=== PATIENT | male | born 1955 | race Caucasian/White ===

== ENCOUNTER → 2019-10-05 14:40 | Outpatient (BNVA) | payer MEDICAID, SELFPAY | PROVIDERS: Family Provider Nurse Practitioner Family; PCP Nurse Practitioner Family; Visit Provider Nurse Practitioner Family | DX: R09.89 Other specified symptoms and signs involving the circulatory and respiratory systems (principal); R60.9 Edema, unspecified | CPT/HCPCS: 71046; 80053; 85025; 87804 ==

== ENCOUNTER → 2019-11-18 09:37 | Outpatient (BNVA) | payer MEDICAID, SELFPAY | PROVIDERS: Visit Provider Nurse Practitioner Family | DX: R73.9 Hyperglycemia, unspecified (principal); R94.4 Abnormal results of kidney function studies; J40 Bronchitis, not specified as acute or chronic | CPT/HCPCS: 80053; 83036 ==

== ENCOUNTER → 2020-02-09 12:22 | Outpatient (BNVA) | payer MEDICAID, SELFPAY | PROVIDERS: PCP Nurse Practitioner Family; Visit Provider Nurse Practitioner Family | DX: E78.5 Hyperlipidemia, unspecified (principal); I10 Essential (primary) hypertension; R73.09 Other abnormal glucose | CPT/HCPCS: 80053; 80061; 83036; 85025 ==

== ENCOUNTER → 2020-05-14 11:37 | Outpatient (BNVA) | payer MEDICAID, SELFPAY | PROVIDERS: PCP Nurse Practitioner Family; Visit Provider Nurse Practitioner Family | DX: E78.5 Hyperlipidemia, unspecified (principal); R73.03 Prediabetes | CPT/HCPCS: 80053; 80061; 83036; 85025 ==

== ENCOUNTER → 2020-11-14 11:41 | Outpatient (BNVA) | payer MEDICAID, SELFPAY | PROVIDERS: PCP Nurse Practitioner Family; Visit Provider Nurse Practitioner Family | DX: Z13.6 Encounter for screening for cardiovascular disorders (principal); I10 Essential (primary) hypertension | CPT/HCPCS: 80053; 80061; 83036; 85025 ==

== ENCOUNTER → 2021-03-20 09:43 | Outpatient (BNVA) | payer MEDICAID, SELFPAY | PROVIDERS: PCP Nurse Practitioner Family; Visit Provider Nurse Practitioner Family | DX: R06.02 Shortness of breath (principal); I51.7 Cardiomegaly; I70.0 Atherosclerosis of aorta; I10 Essential (primary) hypertension | CPT/HCPCS: 71046; 80053; 85025; 85379 ==

== ENCOUNTER → 2021-04-12 08:40 | Outpatient (BNVA) | payer MEDICAID, SELFPAY | PROVIDERS: PCP Nurse Practitioner Family; Visit Provider Nurse Practitioner Family | DX: R53.83 Other fatigue (principal); R73.03 Prediabetes; I10 Essential (primary) hypertension | CPT/HCPCS: 80053; 80061; 81000; 81003; 82306; 82607; 83036; 83735; 84403; 84443; 85025; 87077; 87086; 87184 ==

== ENCOUNTER → 2021-04-19 11:00 | Outpatient (BNVA) | payer MEDICAID, SELFPAY | PROVIDERS: PCP Nurse Practitioner Family; Visit Provider Nurse Practitioner Family | DX: R73.03 Prediabetes (principal); R53.83 Other fatigue; I10 Essential (primary) hypertension; E55.9 Vitamin D deficiency, unspecified; Z95.1 Presence of aortocoronary bypass graft; Z71.6 Tobacco abuse counseling; M54.30 Sciatica, unspecified side; E78.5 Hyperlipidemia, unspecified; N39.0 Urinary tract infection, site not specified; N52.9 Male erectile dysfunction, unspecified; N18.9 Chronic kidney disease, unspecified | CPT/HCPCS: 80048; 84439; 84443; 84481 ==

== ENCOUNTER → 2021-05-06 12:32 | Outpatient (BNVA) | payer MEDICAID, SELFPAY | PROVIDERS: PCP Nurse Practitioner Family; Visit Provider Nurse Practitioner Family | DX: Z95.1 Presence of aortocoronary bypass graft (principal) | CPT/HCPCS: 80048 ==

== ENCOUNTER → 2021-07-17 13:04 | Outpatient (BNVA) | payer MEDICAID, SELFPAY | PROVIDERS: PCP Nurse Practitioner Family; Visit Provider Nurse Practitioner Family | DX: R73.03 Prediabetes (principal); E55.9 Vitamin D deficiency, unspecified | CPT/HCPCS: 80053; 80061; 82306; 83036; 84443; 85025 ==

== ENCOUNTER → 2021-08-30 08:23 | Outpatient (BNVA) | payer MEDICAID, SELFPAY | PROVIDERS: PCP Nurse Practitioner Family; Visit Provider Internal Medicine Pulmonary Disease | DX: Z20.822 Contact with and (suspected) exposure to COVID-19 (principal); Z01.812 Encounter for preprocedural laboratory examination; J44.9 Chronic obstructive pulmonary disease, unspecified | CPT/HCPCS: 87635 ==

== ENCOUNTER 2021-09-05 12:16 | Outpatient (CLI) | payer MEDICAID, SELFPAY ==
--- NOTE | 2021-09-05 12:56 | PFTS_ITS ---
Date of Study:09/05/21 Date of Dictation: 09/06/21 MECHANICS: Postbronchodilator forced vital capacity (FVC) is reduced . Postbronchodilator forced expiratory volume in one second (FEV1) is moderately reduced 66%. FEV1/FVC is normal There is no significant response to bronchodilators. FLOW VOLUME LOOP: Normal. LUNG VOLUMES: Total lung capacity (TLC) is mildly reduced. Residual volume (RV) is normal.. DIFFUSING CAPACITY FOR CARBON MONOXIDE: Normal . INTERPRETATION: The spirometry shows restrictive pattern. Lung volumes suggestive of mild restriction. There is normal. Constellation of findings consistent with restrictive lung disease with normal gas transfer. Clinical correlation recommended. MTDD
--- NOTE | 2021-09-05 13:02 | PFTS_ITS ---
Date of Study:09/05/21 Date of Dictation: 09/06/21 MECHANICS: Postbronchodilator forced vital capacity (FVC) is reduced . Postbronchodilator forced expiratory volume in one second (FEV1) is moderately reduced 66%. FEV1/FVC is normal There is no significant response to bronchodilators. FLOW VOLUME LOOP: Normal. LUNG VOLUMES: Total lung capacity (TLC) is mildly reduced. Residual volume (RV) is normal.. DIFFUSING CAPACITY FOR CARBON MONOXIDE: Normal . INTERPRETATION: The spirometry shows restrictive pattern. Lung volumes suggestive of mild restriction. There is normal. Constellation of findings consistent with obstructive ventilatory disease with restrictive lung disease with normal gas transfer. Clinical correlation recommended. MTDD
== END 2021-09-05 12:17 | disposition home or self-care (01) ==
LOC: RT 12:17
PROVIDERS: PCP Nurse Practitioner Family; Visit Provider Internal Medicine Pulmonary Disease
DX: J44.9 Chronic obstructive pulmonary disease, unspecified (principal)
CPT/HCPCS: 94060; 94726; 94729; J7611

== ENCOUNTER → 2021-10-22 11:39 | Outpatient (BNVA) | payer MEDICAID, SELFPAY | PROVIDERS: PCP Nurse Practitioner Family; Visit Provider Nurse Practitioner Family | DX: E55.9 Vitamin D deficiency, unspecified (principal) | CPT/HCPCS: 82306 ==

== ENCOUNTER → 2021-10-28 15:41 | Outpatient (BNVA) | payer MEDICAID, SELFPAY | PROVIDERS: PCP Nurse Practitioner Family; Visit Provider Nurse Practitioner Family | DX: M19.031 Primary osteoarthritis, right wrist (principal); M25.531 Pain in right wrist; G62.9 Polyneuropathy, unspecified; R73.03 Prediabetes; E55.9 Vitamin D deficiency, unspecified | CPT/HCPCS: 73110; 80053; 82607; 83036; 84443; 85025 ==

== ENCOUNTER → 2021-12-17 12:42 | Outpatient (BNVA) | payer MEDICAID, SELFPAY | PROVIDERS: PCP Nurse Practitioner Family; Visit Provider Internal Medicine Pulmonary Disease | DX: I25.10 Atherosclerotic heart disease of native coronary artery without angina pectoris; J44.9 Chronic obstructive pulmonary disease, unspecified; Z71.6 Tobacco abuse counseling; Z95.1 Presence of aortocoronary bypass graft; F17.210 Nicotine dependence, cigarettes, uncomplicated | CPT/HCPCS: 99214 ==

== ENCOUNTER → 2021-12-19 13:25 | Outpatient (BNVA) | payer MEDICAID, SELFPAY | PROVIDERS: PCP Nurse Practitioner Family; Visit Provider Internal Medicine Cardiovascular Disease | DX: I25.10 Atherosclerotic heart disease of native coronary artery without angina pectoris (principal); J44.9 Chronic obstructive pulmonary disease, unspecified; F17.210 Nicotine dependence, cigarettes, uncomplicated | CPT/HCPCS: 99214 ==

== ENCOUNTER 2022-02-18 08:40 | Outpatient (CLI) | payer MEDICAID, SELFPAY ==
--- NOTE | 2022-02-18 08:48 | CT_ITS ---
WS: [id number] LDCT LUNG CANCER SCREENING TECHNIQUE: Noncontrast CT of the chest with coronal and sagittal reformatted images. CLINICAL INFORMATION: Lung Screening COMPARISON: CT 2014 DLP: 53.0 mGy.cm DIvol: Mean CTDIvol: 1.58 (mGy) All CT scans at [facility] use at least one of these dose optimization techniques: automat ed exposure control; mA and/or kV adjustment per patient size (includes targeted exams where dose is matched to clinical indication); or iterative reconstruction. FINDINGS: Subsegmental atelectasis RIGHT lower lobe with focal nodule measuring 6 mm. This is progressed compar ed to 2015. Associated linear fibrosis in the RIGHT lower lobe. Noncalcified subpleural nodule RIGHT upper lobe measuring 3 mm. 4 mm groundglass opacity LEFT upper l obe is unchanged since 2015 Hypertrophic changes thoracic spine. Cardiomegaly. Aortic calcification. Coronary calcification. Norm al caliber thoracic aorta. Sternotomy. No mediastinal or hilar lymphadenopathy. Adrenal glands are no rmal. CT/CT lung screening [id number] IMPRESSION: LUNG-RADS: 3-Probably Benign FOLLOW UP: 6 Month LDCT
== END 2022-02-18 08:41 | disposition home or self-care (01) ==
LOC: RAD 08:42
PROVIDERS: PCP Nurse Practitioner Family; Visit Provider Internal Medicine Pulmonary Disease
DX: Z12.2 Encounter for screening for malignant neoplasm of respiratory organs (principal); F17.210 Nicotine dependence, cigarettes, uncomplicated
CPT/HCPCS: 71271

== ENCOUNTER → 2022-04-23 14:36 | Outpatient (BNVA) | payer MEDICAID, SELFPAY | PROVIDERS: PCP Nurse Practitioner Family; Visit Provider Internal Medicine Cardiovascular Disease | DX: I11.0 Hypertensive heart disease with heart failure (principal); I50.22 Chronic systolic (congestive) heart failure; I25.10 Atherosclerotic heart disease of native coronary artery without angina pectoris; Z95.1 Presence of aortocoronary bypass graft; F17.210 Nicotine dependence, cigarettes, uncomplicated | CPT/HCPCS: 99214 ==

== ENCOUNTER → 2022-05-05 09:54 | Outpatient (BNVA) | payer MEDICAID, SELFPAY | PROVIDERS: PCP Nurse Practitioner Family; Visit Provider Nurse Practitioner Family | DX: E55.9 Vitamin D deficiency, unspecified (principal); E78.5 Hyperlipidemia, unspecified; I10 Essential (primary) hypertension; N18.9 Chronic kidney disease, unspecified; R73.09 Other abnormal glucose | CPT/HCPCS: 80053; 80061; 82306; 83036; 84443; 85025; G0103 ==

== ENCOUNTER → 2022-05-08 16:54 | Outpatient (BNVA) | payer MEDICAID, SELFPAY | PROVIDERS: PCP Nurse Practitioner Family; Visit Provider Family Medicine | DX: J02.9 Acute pharyngitis, unspecified (principal); E55.9 Vitamin D deficiency, unspecified; G62.9 Polyneuropathy, unspecified; E78.5 Hyperlipidemia, unspecified; I10 Essential (primary) hypertension; G47.00 Insomnia, unspecified | CPT/HCPCS: 87071; 87880 ==

== ENCOUNTER → 2022-06-09 09:32 | Outpatient (BNVA) | payer MEDICAID, SELFPAY | PROVIDERS: PCP Nurse Practitioner Family; Visit Provider Internal Medicine Pulmonary Disease | DX: R06.02 Shortness of breath (principal); Z95.1 Presence of aortocoronary bypass graft; J44.9 Chronic obstructive pulmonary disease, unspecified; Z71.6 Tobacco abuse counseling; I25.119 Atherosclerotic heart disease of native coronary artery with unspecified angina pectoris; F17.210 Nicotine dependence, cigarettes, uncomplicated; Z87.09 Personal history of other diseases of the respiratory system; R91.8 Other nonspecific abnormal finding of lung field | CPT/HCPCS: 99214 ==

== ENCOUNTER 2022-06-10 16:29 | Emergency (ER) | payer MEDICAID, SELFPAY ==
[2022-06-10 16:56] VITALS: BP 201/76; PULSE 63; RESP 16; TEMP 36.6; O2SAT 95; BMI 33.5
[2022-06-10 20:06] VITALS: BP 186/94; PULSE 54; RESP 16; O2SAT 95
--- NOTE | 2022-06-10 20:45 | XRR_ITS ---
PROCEDURE INFORMATION: Exam: XR Lumbosacral Spine Exam date and time: 06/10/2022 8:59 PM Age: 66 years old Clinical indication: Injury or trauma; Fall; Other: Pain; Additional info: Fall with low back pain TECHNIQUE: Imaging protocol: Radiologic exam of the lumbosacral spine. Views: 2 or 3 views. COMPARISON: MR lumbar spine wo con* [id number] 06/22/2019 12:27 PM FINDINGS: Bones/joints: Multilevel productive degenerative endplate changes throughout the spine. Grade 1 anterolisthesis of L4 relative to L5 of 5.5 mm. Moderate osteoarthritis of the hips bilaterally. Soft tissues: Unremarkable. Vasculature: Scattered vascular calcifications. XR/XR lumbar spine 2-3V* [id number] IMPRESSION: 1. Negative for fracture or dislocation 2. Multilevel productive degenerative endplate changes throughout the spine. 3. Grade 1 anterolisthesis of L4 relative to L5 of 5.5 mm. 4. Scattered vascular calcifications. 5. Moderate osteoarthritis of the hips bilaterally.
--- NOTE | 2022-06-10 20:46 | W.ED.BACK ---
HPI - Back Pain/Injury General: Chief Complaint: Back Pain/Injury Stated Complaint: fall/ low back pain Time Seen by Provider: 06/10/22 20:09 History of Present Illness: Patient is a 66-year-old male comes to the ED with low back pain. Patient says symptoms started yesterday when he had a fall. He states that he was helping his friend work on his house and he fell through a soft spot in the floor approximately a foot to a foot and half in height. He landed on his right side. Since fall he is having pain in his lower back that radiates down into his hips bilaterally. Rates the pain currently a 10 out of 10. Pain worsens when he walks. Denies any head trauma or loss of consciousness. Denies being on any blood thinner. Denies any bladder or bowel incontinence, pelvic anesthesia or any weakness to lower extremities. Associated symptoms: Deny abdominal pain, chills, dysuria, fatigue, fever(s), hematuria, nausea or vomiting Review of Systems Const: Denies: fever(s), chills or fatigue Eyes: Denies: change in vision or eye discomfort ENMT: Denies: throat pain, odynophagia, nasal discharge or nasal congestion Card: Denies: chest pain, palpitations, edema, swelling of feet/ankles, dyspnea on exertion or orthopnea Resp: Denies: dyspnea, productive cough or non-productive cough GI: Denies: abdominal pain, nausea, vomiting, diarrhea, constipation or hematochezia : Denies: flank pain, difficulty urinating, dysuria or hematuria Musc: Reports: back pain; Denies: neck pain or extremity swelling Skin/Breast: Denies: rash or new lesions Neuro: Denies: headache(s), numbness in extremities or weakness in extremities PFS ED PFSH: Medical History CHF (congestive heart failure), NYHA class II Essential (primary) hypertension Hyperlipidemia, unspecified Lung nodule Spondylosis without myelopathy or radiculopathy, lumbosacral region Surgical History History of PTCA Hx of CABG Hx of vasectomy Family History Father Stroke Cancer Mother CAD (coronary artery disease) Diabetes Brother CAD (coronary artery disease) Hypertension Social History Smoking and tobacco status: current every day smoker cigarettes Packs smoked per day: 1 Years cigarettes smoked: 40 [ Other cigarette details: 1-2 cartons per day] Second hand smoke exposure: Yes Alcohol intake: never Caregiver/support person: Yes Lives independently: Yes Household members: none Marital status: Single Current occupational status: disabled History of recent travel: No Current gender identity: Male Special suzie needs: No Agree to transfusion: Yes Physical Exam Const: COMMON NORMALS: patient oriented x3 and alert GENERAL APPEARANCE: cooperative HENMT: COMMON NORMALS: normocephalic HEAD & SCALP: normocephalic MOUTH: Normal oral and palatal mucosa present THROAT: posterior oropharynx normal and uvula midline Neck/C-Spine: COMMON NORMALS: supple GENERAL: Yes normal visual inspection Resp: COMMON NORMALS: normal respiratory effort, No retractions, No use of accessory muscles and clear to auscultation bilaterally AUSCULTATION: clear to auscultation bilaterally Cardio: COMMON NORMALS: regular rate, regular rhythm, S1 normal heart sound present, S2 normal heart sound present, No gallops present (Cardio), No clicks present (Cardio), No murmurs present (Cardio) and Peripheral pulses 2+ throughout RATE: regular rate RHYTHM: regular rhythm HEART SOUNDS: S1 normal heart sound present and S2 normal heart sound present PERIPHERAL PULSES: Peripheral pulses 2+ throughout GI: COMMON NORMALS: Normal to inspection, nondistended, normoactive bowel sounds present, Soft to palpation, non-tender and no masses PALPATION: Yes Soft to palpation : COMMON NORMALS: Yes no CVA tenderness BLADDER/KIDNEY EXAM: Yes no CVA tenderness Back/Pelvis: COMMON NORMALS: no CVA tenderness LUMBAR SPINE/LOWER BACK: Yes pain with ROM, Yes lumbar spinal tenderness Lumbar spinal tenderness location: L3, L4 and L5 and Yes paraspinal muscle tenderness Lumbar paraspinal muscle tenderness: bilateral Extremity: COMMON NORMALS: normal to inspection Neuro: COMMON NORMALS: patient oriented x3 SENSORIUM/ORIENTATION: Yes alert GAIT: Yes Normal gait present Skin: GENERAL SKIN EXAM: dry skin Course Vital Signs: Vital signs: Vital Signs Temperature 98 F 06/10/22 16:56 Pulse Rate 54 L 06/10/22 20:06 Respiratory Rate 16 06/10/22 20:06 Blood Pressure 186/94 06/10/22 20:06 Pulse Oximetry 95 06/10/22 20:06 Oxygen Delivery Me thod 06/10/22 20:06 MDM - Back Pain/Injury Medical Decision Making Patient is a 66-year-old male comes to the ED with low back pain. Patient says symptoms started yesterday when he had a fall. He states that he was helping his friend work on his house and he fell through a soft spot in the floor approximately a foot to a foot and half in height. He landed on his right side. Since fall he is having pain in his lower back that radiates down into his hips bilaterally. Denies any cauda equina symptoms, head trauma or loss of consciousness. Vitals are stable. He appears nontoxic and in no acute distress. Patient has some lumbar spinal tenderness at L3-L4 and L5 and lumbar paraspinal muscle tenderness bilaterally. Rest of exam is benign. X-ray of lumbar spine showed no acute fractures or dislocations. Patient was given a dose of Toradol, steroid and Norflex while here in the ED. He was diagnosed with low back pain radiating to both legs and was discharged home with a prescription for Celebrex, Medrol Dosepak and a muscle relaxer. Told to follow-up with PCP in the next week for reevaluation. Return ED precautions given. Patient understood and agree with plan. Labs Radiology Impressions Lumbar Spine X-Ray 06/10/22 20:45 IMPRESSION: 1. Negative for fracture or dislocation 2. Multilevel productive degenerative endplate changes throughout the spine. 3. Grade 1 anterolisthesis of L4 relative to L5 of 5.5 mm. 4. Scattered vascular calcifications. 5. Moderate osteoarthritis of the hips bilaterally. Discharge Plan Discharge Patient Disposition: Home Clinical Impression: Low back pain radiating to both legs Condition: Stable Prescriptions: New Celebrex 100 mg capsule 100 mg PO BID PRN (Reason: pain) Qty: 30 0RF Medrol ([place]) 4 mg tablets,dose pack See Rx Instructions .ROUTE .COMPLEX Qty: 21 0RF Rx Instructions: orally per package directions methocarbamol 750 mg tablet 750 mg PO Q8H PRN (Reason: Muscle spasms and pain) Qty: 30 0RF No Action naproxen 500 mg tablet 500 mg PO BID PRN (Reason: pain) Qty: 60 5RF fenofibrate 160 mg tablet 160 mg PO DAILY Qty: 30 5RF atorvastatin 80 mg tablet 80 mg PO DAILY Qty: 30 5RF albuterol sulfate [ProAir HFA] 90 mcg/actuation HFA aerosol inhaler 2 puff INHALATION QID PRN (Reason: shortness of breath or wheezing) Qty: 18 5RF nitroglycerin 0.4 mg tablet, sublingual See Rx Instructions .ROUTE .COMPLEX Qty: 25 3RF Dose Instruction: DISSOLVE ONE TABLET UNDER THE TONGUE EVERY 5 MINUTES NEEDED FOR CHEST PAIN. DO NOT EXCEED A TOTAL OF 3 DOSES IN 15 MINUTES Rx Instructions: DISSOLVE ONE TABLET UNDER THE TONGUE EVERY 5 MINUTES NEEDED FOR CHEST PAIN. DO NOT EXCEED A TOTAL OF 3 DOSES IN 15 MINUTES aspirin [Adult Low Dose Aspirin] 81 mg tablet,delayed release (DR/EC) 81 mg PO BID Anoro Ellipta 62.5-25 mcg/actuation blister with device 1 inh inhalation DAILY Qty: 60 3RF ipratropium-albuterol 0.5 mg-3 mg(2.5 mg base)/3 mL solution for nebulization 3 ml inhalation BID Qty: 180 3RF isosorbide mononitrate 60 mg tablet extended release 24 hr 60 mg PO BID Qty: 180 3RF ramipril 10 mg capsule 10 mg PO BID Qty: 180 3RF ergocalciferol (vitamin D2) 1,250 mcg (50,000 unit) capsule 1,250 mcg PO .WEEKLY Qty: 4 5RF gabapentin 300 mg capsule See Rx Instructions .ROUTE .COMPLEX Qty: 90 2RF Dose Instruction: TAKE 1 CAPSULE BY MOUTH THREE TIMES DAILY Rx Instructions: TAKE 1 CAPSULE BY MOUTH THREE TIMES DAILY methocarbamol 750 mg tablet See Rx Instructions .ROUTE .COMPLEX Qty: 30 3RF Dose Instruction: TAKE 1 TABLET BY MOUTH ONCE DAILY NEEDED FOR PAIN Rx Instructions: TAKE 1 TABLET BY MOUTH ONCE DAILY NEEDED FOR PAIN trazodone 100 mg tablet 100 mg PO DAILY Qty: 30 2RF ibuprofen 800 mg tablet See Rx Instructions .ROUTE .COMPLEX Qty: 60 3RF Dose Instruction: TAKE 1 TABLET BY MOUTH TWICE DAILY NEEDED FOR PAIN *DO NOT TAKE WITH NAPROXEN OR OTHER NSAIDS* Rx Instructions: TAKE 1 TABLET BY MOUTH TWICE DAILY NEEDED FOR PAIN *DO NOT TAKE WITH NAPROXEN OR OTHER NSAIDS* metoprolol tartrate 100 mg tablet 100 mg PO BID Qty: 60 0RF Discharge Orders: Discharge ED (Routine); Ordered 06/10/22 Ordered By: Mamadou Mukherjee Referrals: Daphne Flower FNP [Primary Care Provider] - Discharge Diet: Regular Discharge Activity: Increase activity as tolerated Patient Instructions: Acute Low Back Pain (ED), Lumbar Radiculopathy (ED) Activity Restrictions/Additional Instructions: Follow-up with medical provider as directed in the next 5 to 7 days for reevaluation. Take medications as prescribed. Limit lifting and rest for the next several days to allow for healing. Apply cold pack on lower back to help with symptoms as well. Return to the ER or your medical provider if condition worsens. Please read and understand discharge instructions. Thank you for choosing [facility] [place] for your healthcare needs today. Please realize this is an emergency room and that we are providing you with a medical screening exam and this may not be complete and all inclusive of all the testing and or work up that you may need to determine your ailment or severity of your illness. It is very important that you follow up as instructed or that you return to the Emergency Department should you have concerns or if your condition changes or worsens in any way. Coding Level of Care Code ED Jute Bag Clipper for Jordan Fwd Exam Comprehensive
[2022-06-10] MEDS: orphenadrine 30 mg/mL Inj 2 mL 60 MG IM (21:22)
[2022-06-10] MEDS: ketorolac 60 mg/2 mL INJ IM (21:22)
== END 2022-06-10 22:18 | disposition home or self-care (01) ==
PROVIDERS: Emergency Provider Physician Assistant; PCP Nurse Practitioner Family
DX: M54.50 Low back pain, unspecified (principal); Z79.82 Long term (current) use of aspirin; F17.210 Nicotine dependence, cigarettes, uncomplicated; I11.0 Hypertensive heart disease with heart failure; I50.9 Heart failure, unspecified; E78.5 Hyperlipidemia, unspecified
CPT/HCPCS: 72100; 96372; 99284; J1885; J2360; J2930

== ENCOUNTER 2022-06-19 02:01 | Emergency (ER) | payer MEDICAID, SELFPAY ==
[2022-06-19 02:05] VITALS: BMI 32.0
[2022-06-19 02:10] VITALS: BP 113/60; PULSE 68; RESP 16; TEMP 37.1; O2SAT 94
--- NOTE | 2022-06-19 02:11 | ECG_ITS ---
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 Measurements Intervals [place] Rate: 65 P: 33 AR: 176 QRS: 75 QRSD: 110 T: 160 QT: 392 QTc: 408 Interpretive Statements SINUS RHYTHM ST DEVIATION AND MODERATE T-WAVE ABNORMALITY, CONSIDER LATERAL ISCHEMIA [-0.1+ mV T-WAVE IN I/aVL/V5/V6] Compared to ECG 03/05/2017 18:48:55 Possible ischemia now present T-wave abnormality still present Electronically Signed On 06-19-2022 20:41:18 CDT by Singh Wilson M.D. [email or web address]
--- NOTE | 2022-06-19 02:19 | XRR_ITS ---
PROCEDURE INFORMATION: Exam: XR Chest Exam date and time: 06/19/2022 2:24 AM Age: 66 years old Clinical indication: Pain; Chest pressure; Prior surgery; Surgery date: 6+ months; Surgery type: Cabg; Additional info: Cp TECHNIQUE: Imaging protocol: Radiologic exam of the chest. Views: 1 view. COMPARISON: CR XR chest 2V* [id number] 03/20/2021 9:48 AM FINDINGS: Lungs: The lung parenchyma is clear. Pleural spaces: No pneumothorax. No pleural effusion. Heart/Mediastinum: Stable cardiomegaly. Coronary stents noted. Bones/joints: Median sternotomy wires noted. Mild degenerative changes in the acromioclavicular joints. XR/XR chest 1V portable [id number] IMPRESSION: 1. Stable cardiomegaly. 2. No acute cardiopulmonary abnormality identified.
--- NOTE | 2022-06-19 02:23 | W.ED.CHESTPA ---
HPI - Chest Pain General: Chief Complaint: Chest Pain Stated Complaint: Chest Pain Time Seen by Provider: 06/19/22 02:13 Source: patient Mode of arrival: ambulatory Limitations: no limitations History of Present Illness: 66-year-old male has extensive cardiac history history of a CABG along with stent placement roughly a year ago he states that tonight at 10 PM he started having a substernal chest pain that radiated into his arms patient states he took 10 nitro at home he since had resolution of his pain is currently pain-free. He denies any dyspnea denies any nausea denies any diaphoresis. Associated symptoms: Deny abdominal pain, dyspnea, fever(s), nausea or vomiting Review of Systems Const: Denies: fever(s), chills, body aches or change in appetite Eyes: Denies: blurry vision or eye discomfort ENMT: Denies: throat pain or dental pain Card: Reports: chest pain Resp: Denies: dyspnea GI: Denies: abdominal pain, nausea, vomiting or diarrhea : Denies: dysuria Musc: Denies: neck pain or back pain Skin/Breast: Denies: rash Neuro: Denies: headache(s) Psych: Denies: depression Erik/Lymph: Denies: easy bruising All/Imm: Denies: urticaria PFSH ED PFSH: Medical History CHF (congestive heart failure), NYHA class II Essential (primary) hypertension Hyperlipidemia, unspecified Lung nodule Spondylosis without myelopathy or radiculopathy, lumbosacral region Surgical History History of PTCA Hx of CABG Hx of vasectomy Family History Father Stroke Cancer Mother CAD (coronary artery disease) Diabetes Brother CAD (coronary artery disease) Hypertension Social History Smoking and tobacco status: current every day smoker cigarettes Packs smoked per day: 1 Years cigarettes smoked: 40 [ Other cigarette details: 1-2 cartons per day] Second hand smoke exposure: Yes Alcohol intake: never Caregiver/support person: Yes Lives independently: Yes Household members: none Marital status: Single Current occupational status: disabled History of recent travel: No Current gender identity: Male Special suzie needs: No Agree to transfusion: Yes Physical Exam Const: COMMON NORMALS: no acute distress, patient oriented x3 and healthy appearing HENMT: COMMON NORMALS: normocephalic and atraumatic HEAD & SCALP: normocephalic and atraumatic Eye: COMMON NORMALS: Equal, round and reactive pupils present and EOMs intact bilaterally PUPIL: Yes Equal, round and reactive pupils present Neck/C-Spine: COMMON NORMALS: full ROM and supple Chest: COMMONS NORMALS: normal inspection of the chest and normal palpation of entire chest wall Resp: COMMON NORMALS: normal respiratory effort, No retractions, No use of accessory muscles and clear to auscultation bilaterally AUSCULTATION: clear to auscultation bilaterally Cardio: COMMON NORMALS: regular rate, regular rhythm and No murmurs present (Cardio) RATE: regular rate RHYTHM: regular rhythm GI: COMMON NORMALS: Normal to inspection, nondistended, normoactive bowel sounds present, Soft to palpation, non-tender and no masses PALPATION: Yes Soft to palpation Extremity: COMMON NORMALS: normal to inspection and full ROM Neuro: COMMON NORMALS: patient oriented x3, moves all extremities and no focal motor deficits Psych: COMMON NORMALS: mental status grossly normal, Normal thought process present and cooperative THOUGHT PROCESS: Normal thought process present Skin: COMMON NORMALS: no rashes or lesions noted and no wounds GENERAL SKIN EXAM: no rashes or lesions noted Course Vital Signs: Vital signs: Vital Signs Temperature 98.8 F 06/19/22 02:10 Pulse Rate 69 06/19/22 05:12 Respiratory Rate 21 H 06/19/22 03:10 Blood Pressure 142/78 06/19/22 05:12 Pulse Oximetry 93 06/19/22 05:12 Oxygen Delivery Me thod 06/19/22 03:10 MDM - Chest Pain Medical Decision Making Patient presents here with chest pain have some ischemic changes on his EKG second troponin is normal. I spoke to patient at length I strongly recommended admission due to his history along with EKG findings. He states he feels improved and he does not want to stay at the hospital informed him he could be having a heart attack and I would recommend admission he understands the gravity of this has medical decision making and is going to sign out AGAINST MEDICAL ADVICE we will get him follow-up with cardiology if he changes his mind he is to return. Lab Data : 06/19/22 02:17 06/19/22 02:17 Radiology Impressions Chest X-Ray 06/19/22 02:19 IMPRESSION: 1. Stable cardiomegaly. 2. No acute cardiopulmonary abnormality identified. Laboratory Results WBC 10.9 10^3/uL (4.0-10.0) H 06/19/22 02:17 RBC 4.10 10^6/uL (4.1-5.3) 06/19/22 02:17 Hgb 13.2 g/dL (11.7-16.6) 06/19/22 02:17 Hct 39.8 % (42.0-52.0) L 06/19/22 02:17 MCV 97.1 fl (80-94) H 06/19/22 02:17 MCH 32.2 pg (28.0-34.0) 06/19/22 02:17 MCHC 33.2 g/dL (30.0-36.0) 06/19/22 02:17 RDW 13.9 % (12.1-15.1) 06/19/22 02:17 Plt Count 214 10^3/cmm (130-400) 06/19/22 02:17 MPV 11.2 fL (7.4-10.4) H 06/19/22 02:17 Neut % (Auto) 56.7 % 06/19/22 02:17 Lymph % (Auto) 26.6 % 06/19/22 02:17 Edwards % (Auto) 11.9 % 06/19/22 02:17 Eos % (Auto) 3.7 % 06/19/22 02:17 Baso % (Auto) 0.7 % 06/19/22 02:17 Neut # (Auto) 6.19 10^3/uL (1.8-7.7) 06/19/22 02:17 Lymph # (Auto) 2.9 10^3/uL (0.8-4.8) 06/19/22 02:17 Edwards # (Auto) 1.3 10^3/uL (0.2-0.9) H 06/19/22 02:17 Eos # (Auto) 0.4 10^3/uL (0.0-0.8) 06/19/22 02:17 Baso # (Auto) 0.1 10^3/uL (0.0-0.1) 06/19/22 02:17 Nucleated RBC % (auto) 0 % 06/19/22 02:17 Nucleated RBCs # 0.0 /100WBC 06/19/22 02:17 Sodium 139 mmol/L (136-145) 06/19/22 02:17 Potassium 3.5 mmol/L (3.5-5.1) 06/19/22 02:17 Chloride 101 mmol/L (98-107) 06/19/22 02:17 Carbon Dioxide 28 mmol/L (22-29) 06/19/22 02:17 Anion Gap 13.5 (5-19) 06/19/22 02:17 BUN 26 mg/dL (8-23) H 06/19/22 02:17 Creatinine 1.7 mg/dL (0.7-1.2) H 06/19/22 02:17 GFR Calculation 40.8 mL/min (90-130) L 06/19/22 02:17 Glucose 147 mg/dL (65-115) H 06/19/22 02:17 Calculated Osmolality 295 mOsm/kg (285-295) 06/19/22 02:17 Calcium 10.1 mg/dL (8.5-10.5) 06/19/22 02:17 Total Bilirubin 0.4 mg/dL (0.15-1.2) 06/19/22 02:17 AST 23 U/L (0-40) 06/19/22 02:17 ALT 14 U/L (0-41) 06/19/22 02:17 Alkaline Phosphatase 55 U/L (40-130) 06/19/22 02:17 Troponin T Baseline 50 ng/L (0-15) H 06/19/22 02:17 Troponin T 120 Minute 55.48 ng/L (0-15) H 06/19/22 04:00 Delta Troponin T 5.48 ABS# (0-10) 06/19/22 04:00 Total Protein 6.4 g/dL (6.6-8.7) L 06/19/22 02:17 Albumin 3.9 g/dL (3.5-5.2) 06/19/22 02:17 Globulin 2.5 g/dL (1.3-4.6) 06/19/22 02:17 EKG Data EKG 1: I personally reviewed and interpreted this EKG as follows: EKG interpretation date: 06/19/22 EKG interpretation time: 02:11 Interpretation: nsr hr [address] elevation qrs 110 qtc 403 Discharge Plan Discharge Patient Disposition: Left Against Medical Advice Clinical Impression: Chest pain Condition: Stable Prescriptions: No Action naproxen 500 mg tablet 500 mg PO BID PRN (Reason: pain) Qty: 60 5RF fenofibrate 160 mg tablet 160 mg PO DAILY Qty: 30 5RF atorvastatin 80 mg tablet 80 mg PO DAILY Qty: 30 5RF nitroglycerin 0.4 mg tablet, sublingual See Rx Instructions .ROUTE .COMPLEX Qty: 25 3RF Dose Instruction: DISSOLVE ONE TABLET UNDER THE TONGUE EVERY 5 MINUTES NEEDED FOR CHEST PAIN. DO NOT EXCEED A TOTAL OF 3 DOSES IN 15 MINUTES Rx Instructions: DISSOLVE ONE TABLET UNDER THE TONGUE EVERY 5 MINUTES NEEDED FOR CHEST PAIN. DO NOT EXCEED A TOTAL OF 3 DOSES IN 15 MINUTES aspirin [Adult Low Dose Aspirin] 81 mg tablet,delayed release (DR/EC) 81 mg PO BID Anoro Ellipta 62.5-25 mcg/actuation blister with device 1 inh inhalation DAILY Qty: 60 3RF ipratropium-albuterol 0.5 mg-3 mg(2.5 mg base)/3 mL solution for nebulization 3 ml inhalation BID Qty: 180 3RF isosorbide mononitrate 60 mg tablet extended release 24 hr 60 mg PO BID Qty: 180 3RF ramipril 10 mg capsule 10 mg PO BID Qty: 180 3RF ergocalciferol (vitamin D2) 1,250 mcg (50,000 unit) capsule 1,250 mcg PO .WEEKLY Qty: 4 5RF gabapentin 300 mg capsule See Rx Instructions .ROUTE .COMPLEX Qty: 90 2RF Dose Instruction: TAKE 1 CAPSULE BY MOUTH THREE TIMES DAILY Rx Instructions: TAKE 1 CAPSULE BY MOUTH THREE TIMES DAILY trazodone 100 mg tablet 100 mg PO DAILY Qty: 30 2RF celecoxib [Celebrex] 200 mg capsule 200 mg PO BID PRN (Reason: pain) Qty: 60 0RF tramadol 50 mg tablet 50 mg PO TID PRN (Reason: pain) Qty: 21 0RF ibuprofen 800 mg tablet See Rx Instructions .ROUTE .COMPLEX Qty: 60 3RF Dose Instruction: TAKE 1 TABLET BY MOUTH TWICE DAILY NEEDED FOR PAIN *DO NOT TAKE WITH NAPROXEN OR OTHER NSAIDS* Rx Instructions: TAKE 1 TABLET BY MOUTH TWICE DAILY NEEDED FOR PAIN *DO NOT TAKE WITH NAPROXEN OR OTHER NSAIDS* metoprolol tartrate 100 mg tablet 100 mg PO BID Qty: 60 0RF albuterol sulfate [ProAir HFA] 90 mcg/actuation HFA aerosol inhaler 2 puff INHALATION QID PRN (Reason: shortness of breath or wheezing) Qty: 18 5RF Medrol (B[place]) 4 mg tablets,dose pack See Rx Instructions .ROUTE .COMPLEX Qty: 21 0RF Rx Instructions: orally per package directions methocarbamol 750 mg tablet 750 mg PO Q8H PRN (Reason: Muscle spasms and pain) Qty: 30 0RF Referrals: Daphne Flower FNP [Primary Care Provider] - Em Arauz MD [Physician] - 1-3 days Discharge Diet: Advance as tolerated Discharge Activity: Resume usual activity Patient Instructions: Chest Pain (ED) Coding Level of Care Code ED Nurse Case Manager for Chg Fwd Exam Comprehensive
[2022-06-19 02:25] LABS: Basophils # 0.1 10^3/uL (0.0-0.1); Basophils % 0.7 %; Eosinophils # 0.4 10^3/uL (0.0-0.8); Eosinophils % 3.7 %; Hematocrit 39.8 % (42.0-52.0); Hemoglobin 13.2 g/dL (11.7-16.6); Lymphocytes # 2.9 10^3/uL (0.8-4.8); Lymphocytes % 26.6 %; Mean Corpuscular HGB Conc 33.2 g/dL (30.0-36.0); Mean Corpuscular Hemoglobin 32.2 pg (28.0-34.0); Mean Corpuscular Volume 97.1 fl (80-94); Mean Platelet Volume 11.2 fL (7.4-10.4); Monocytes # 1.3 10^3/uL (0.2-0.9); Monocytes % 11.9 %; Neutrophils # 6.19 10^3/uL (1.8-7.7); Neutrophils % 56.7 %; Nucleated Red Blood Cells % 0 %; Platelet Count 214 10^3/cmm (130-400); Red Cell Distribution Width 13.9 % (12.1-15.1); White Blood Count 10.9 10^3/uL (4.0-10.0)
[2022-06-19 02:40] VITALS: BP 107/57; PULSE 66; RESP 27; O2SAT 96
[2022-06-19 02:47] LABS: Alanine Aminotransferase 14 U/L (0-41); Albumin Level 3.9 g/dL (3.5-5.2); Alkaline Phosphatase 55 U/L (40-130); Anion Gap 13.5 (5-19); Aspartate Amino Transferase 23 U/L (0-40); Blood Urea Nitrogen 26 mg/dL (8-23); Calcium 10.1 mg/dL (8.5-10.5); Carbon Dioxide 28 mmol/L (22-29); Chloride 101 mmol/L (98-107); Globulin 2.5 g/dL (1.3-4.6); Glomerular Filtration Rate 40.8 mL/min (90-130); Glucose 147 mg/dL (65-115); Osmolality Calculated 295 mOsm/kg (285-295); Potassium 3.5 mmol/L (3.5-5.1); Sodium 139 mmol/L (136-145); Total Bilirubin 0.4 mg/dL (0.15-1.2); Total Protein 6.4 g/dL (6.6-8.7); Troponin(5th) Baseline 50 ng/L (0-15)
[2022-06-19 03:10] VITALS: BP 120/72; PULSE 67; RESP 21; O2SAT 94
[2022-06-19 04:41] LABS: Troponin 5 2HR 55.48 ng/L (0-15)
[2022-06-19 04:45] LABS: Troponin 5 2HR Delta 5.48 ABS# (0-10)
[2022-06-19 05:12] VITALS: BP 142/78; PULSE 69; O2SAT 93
--- NOTE | 2022-06-19 08:19 | ECG_ITS ---
[facility] Test Date: 2022-06-19 Pat Name: Steve Gandara Department: Room: Gender: Male Practice Administrator: : 1955 Requested By: Lora Dickerson Order Number: [id number] Reading MD: Singh Wilson M.D. Measurements Intervals [place] Rate: 63 P: 32 FL: 183 QRS: 79 QRSD: 106 T: 153 QT: 402 QTc: 413 Interpretive Statements SINUS RHYTHM ST DEVIATION AND MODERATE T-WAVE ABNORMALITY, CONSIDER LATERAL ISCHEMIA [-0.1+ mV T-WAVE IN I/aVL/V5/V6] Compared to ECG 06/19/2022 02:11:27 No significant changes Electronically Signed On 06-19-2022 20:42:00 CDT by Singh Wilson M.D. [email or web address] county [email or web address] Design [email or web address] riverside [facility].[email or web address]/[id number]
--- NOTE | 2022-06-19 09:19 | DCPLANNER ---
Addendum entered by Felecia Hollingsworth 09/01/22 14:18: Patient had a follow up appointment scheduled for 06.24.22 with Monserrat at [facility] - patient did attend appointment. Addendum entered by Felecia Hollingsworth 06/20/22 08:54: Patient has a follow up appointment scheduled for Friday, June 24, 2022 at 11:00 with Humaira Hernandez at [facility]. Clinic will call patient with appointment information. Original Note: meat market manager had message to schedule a follow up appointment for patient with cardiology. meat market manager sent patients information to the front office staff at [facility]. Patients information will be printed. Clinic will call patient with appointment information.
== END 2022-06-19 05:17 | disposition left against medical advice (07) ==
PROVIDERS: Emergency Provider Emergency Medicine; PCP Nurse Practitioner Family
DX: R07.9 Chest pain, unspecified (principal); Z53.21 Procedure and treatment not carried out due to patient leaving prior to being seen by health care provider; Z79.82 Long term (current) use of aspirin; F17.210 Nicotine dependence, cigarettes, uncomplicated; I11.0 Hypertensive heart disease with heart failure; I50.9 Heart failure, unspecified; E78.5 Hyperlipidemia, unspecified; Z95.1 Presence of aortocoronary bypass graft
CPT/HCPCS: 71045; 80053; 84484; 85025; 93005; 99285

== ENCOUNTER → 2022-06-24 10:50 | Outpatient (BNVA) | payer MEDICAID, SELFPAY | PROVIDERS: PCP Nurse Practitioner Family; Visit Provider Nurse Practitioner Family | DX: R07.9 Chest pain, unspecified (principal); F17.210 Nicotine dependence, cigarettes, uncomplicated | CPT/HCPCS: 93005; 99213 ==

== ENCOUNTER 2022-06-27 07:10 | Outpatient (CLI) | payer MEDICAID, SELFPAY ==
--- NOTE | 2022-06-27 07:53 | ECG_ITS ---
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 Interpretive Statements NAME OF STUDY: LEXISCAN SESTAMIBI STRESS TEST INDICATION: [Chest Pain; Dyspnea on exertion, ] Procedure: At the baseline, the blood pressure was 139/87 mmHg with a heart rate of 60 bpm. The electrocardiogram showed normal sinus rhythm, normal axis with normal ST and T's. The Lexiscan was infused over a period of 20 seconds. A total of 0.4 mg of Lexiscan was infused. The stress phase was continued for a total of 5 minutes. Heart rate was at the end of stress phase was 68 bpm and a blood pressure of 154/79 mmHg. The EKG at the peak infusion revealed normal sinus rhythm with no significant ST-T wave changes. Sestamibi was injected 20 seconds after the Lexiscan infusion. Blood pressure at the end of recovery phase was 134/67 mmHg with a heart rate of 69 bpm. Conclusion: 1. Normal EKG response to Lexiscan infusion 2. No Lexiscan induced chest pain or cardiac arrhythmia. 3. Normal blood pressure and heart rate response. 4. Sestamibi/sestamibi perfusion scan pending; see separate report. Electronically Signed On 06-28-2022 21:22:02 CDT by Sami Tejada M.D. [email or web address]!/[id number]
--- NOTE | 2022-06-27 07:54 | NMCV_ITS ---
NM sanjuanita perf SPECT r/s* [id number] Steve Gandara Age: 66 Gender: M : 1955 Exam Date: 06/27/2022 07:54 Ordering Phys: Chris Farrar MD Technologist: MARIA L Dumont Exam Location: [facility] Indications: AORTOCORONARY BYPASS GRAFT, CHEST PAIN STRESS TEST Please see separate stress test report in [facility] for full findings IMAGE PROTOCOL Rest/Stress 1 Lexiscan Day Radiopharmaceutical Dose (mCi) Administration Site Administered by Rest: Tc-99m 10.8 IV MARIA L Dumont Sestamibi Stress:Tc-99m 32.8 IV MARIA L Carey Sestamibi Rest: 27-Jun-2022 60 Discovery 630 Stress: 27-Jun-2022 30 Discovery 630 0.4mg Lexiscan. Images obtained in supine and prone position. SPECT RESULTS Technical Quality: Excellent Raw Data Analysis: Normal Image Corrections: No attenuation or motion correction applied Summed Stress Score: 10 Summed Rest Score: 2 Summed Difference Score: 8 PERFUSION FINDINGS There is moderate sized mostly reversible perfusion defect noted in anterior apical, and anterior wall. This is consistent with moderate sized area of ischemia in LAD territory. There is partially reversible, moderate sized perfusion defect noted in inferior and inferolateral wall. This is consistent with prior infarct with lou-infarct ischemia in RCA and left circumflex artery territory FUNCTIONAL RESULTS (calculated via Gated SPECT) Stress Image LV EF (%): 46 Stress EDV (mL):141 TID: 1.08 Stress ESV (mL):76 FUNCTIONAL FINDINGS: LV systolic function is mildly reduced. IMPRESSIONS 1. Abnormal myocardial perfusion imaging with moderate sized area of ischemia in LAD territory. Prior infarct with lou-infarct ischemia seen in left circumflex artery and RCA territory. 2. LV systolic function is mildly reduced with mild global hypokinesis Sami Tejada MD (Electronically Signed) Final Date: 27 June 2022 13:25 S
[2022-06-27 07:55] VITALS: BMI 32.0
[2022-06-27] MEDS: regadenoson 0.4 Mg/5 ml Syringe IVP (09:25)
[2022-06-27 09:50] VITALS: BP 134/67; PULSE 68
== END 2022-06-27 07:11 | disposition home or self-care (01) ==
LOC: CDL 07:14
PROVIDERS: PCP Nurse Practitioner Family; Visit Provider Internal Medicine Pulmonary Disease
DX: Z95.1 Presence of aortocoronary bypass graft (principal)
CPT/HCPCS: 78452; 93017; A9500; J2785

== ENCOUNTER 2022-07-10 08:09 | Outpatient (CLI) | payer MEDICAID, SELFPAY ==
--- NOTE | 2022-07-10 08:00 | MR_ITS ---
WS: [id number] MRI LUMBAR SPINE NONCONTRAST HISTORY: M54.50 - Low back pain, unspecified COMPARISON: 2018 TECHNIQUE: Sagittal and axial multisequence imaging is submitted. Again noted is a congenitally small thecal sac beginning in the cervical spine through the thoracic s pine. Disc bulging and osteophytes and possible posterior longitudinal calcification in the cervical spine, most significant at C3-4, C4-5 and C5-6. Additional disc protrusions and facet arthritis in th e thoracic spine. Very mild LEFT curvature of the lumbar spine. Less than 2 mm anterolisthesis of L4. Disc spaces are well preserved. No fractures or marrow edema. Conus terminates normally at L1-2 disc level. L1-L2: Facet arthropathy and ligamentum flavum hypertrophy. Mild LEFT foraminal narrowing. L2-L3: Diffuse annular disc bulging with a central disc protrusion. Mild osteophytic ridging with mod erate ligamentum flavum and facet arthritis. Mild central, bilateral subarticular recess and foramina l stenosis. L3-L4: Diffuse annular disc bulging with marked ligamentum flavum disease and facet arthritis. Modera te central and bilateral foraminal stenosis. Severe bilateral subarticular recess stenosis, RIGHT gre ater than LEFT. Stenosis has progressed since the prior study with greater encroachment into the suba rticular recesses. L4-L5: Severe diffuse annular disc bulging with marked ligamentum flavum hypertrophy and facet arthri tis. Severe central, bilateral subarticular recess and RIGHT foraminal stenosis. Moderate LEFT forami nal stenosis. Progression of stenosis and facet disease since the prior study. L5-S1: Mild diffuse annular disc bulging with facet and ligamentum flavum hypertrophy. Mild osteophyt osis encroaches into the foramina. Mild central stenosis with moderate bilateral foraminal stenosis. Very small central disc protrusion is unchanged. Paravertebral soft tissues are negative. MR/MR lumbar spine wo con* [id number] IMPRESSION: 1. 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 2. Severe central, bilateral subarticular recess and RIGHT foraminal stenosis at L4-5. Mild progression of degenerative changes and stenosis. Moderate LEFT f oraminal stenosis. 3. Moderate central and bilateral foraminal stenosis at L3-4 with severe bilat eral subarticular recess stenosis, RIGHT greater than LEFT. Mild progression of stenoses. 4. Mild central, bilateral subarticular and foraminal stenosis at L2-3. 5. Mild LEFT foraminal stenosis at L1-2.
== END 2022-07-10 08:10 | disposition home or self-care (01) ==
LOC: RAD 08:10
PROVIDERS: PCP Nurse Practitioner Family; Visit Provider Nurse Practitioner Family
DX: M79.604 Pain in right leg (principal); M79.605 Pain in left leg; M48.061 Spinal stenosis, lumbar region without neurogenic claudication
CPT/HCPCS: 72148

== ENCOUNTER → 2022-08-06 10:48 | Outpatient (BNVA) | payer MEDICAID, SELFPAY | PROVIDERS: PCP Nurse Practitioner Family; Visit Provider Nurse Practitioner Family | DX: E55.9 Vitamin D deficiency, unspecified (principal); I10 Essential (primary) hypertension; E78.5 Hyperlipidemia, unspecified | CPT/HCPCS: 80053; 80061; 82306; 84443; 85025 ==

== ENCOUNTER → 2022-08-12 12:39 | Outpatient (BNVA) | payer MEDICAID, SELFPAY | PROVIDERS: PCP Nurse Practitioner Family; Referring Provider Nurse Practitioner Family; Visit Provider Physician Assistant | DX: M48.062 Spinal stenosis, lumbar region with neurogenic claudication (principal); M51.37 Other intervertebral disc degeneration, lumbosacral region; M43.17 Spondylolisthesis, lumbosacral region | CPT/HCPCS: 72110; 99204 ==

== ENCOUNTER 2022-08-20 07:23 | Observation (INO) | payer MEDICAID, SELFPAY ==
[2022-08-20] VITALS (11 sets, daily range): BP systolic 143–189; BP diastolic 70–96; PULSE 52–68; RESP 14–17; TEMP 36.7–36.8; O2SAT 93–100; BMI 32.0; BMI 32.9
[2022-08-20] MEDS: diphenhydrAMINE 50 mg Capsule PO (06:11)
[2022-08-20 06:28] LABS: Basophils # 0.1 10^3/uL (0.0-0.1); Basophils % 0.6 %; Eosinophils # 0.2 10^3/uL (0.0-0.8); Eosinophils % 2.1 %; Hematocrit 50.2 % (42.0-52.0); Hemoglobin 16.4 g/dL (11.7-16.6); Lymphocytes # 2.8 10^3/uL (0.8-4.8); Lymphocytes % 24.3 %; Mean Corpuscular HGB Conc 32.7 g/dL (30.0-36.0); Mean Corpuscular Hemoglobin 31.9 pg (28.0-34.0); Mean Corpuscular Volume 97.7 fl (80-94); Mean Platelet Volume 10.5 fL (7.4-10.4); Monocytes # 1.3 10^3/uL (0.2-0.9); Monocytes % 10.9 %; Neutrophils # 7.07 10^3/uL (1.8-7.7); Neutrophils % 61.8 %; Nucleated Red Blood Cells % 0 %; Platelet Count 219 10^3/cmm (130-400); Red Blood Count 5.14 10^6/uL (4.1-5.3); Red Cell Distribution Width 14.5 % (12.1-15.1); White Blood Count 11.5 10^3/uL (4.0-10.0)
[2022-08-20 06:48] LABS: Anion Gap 12.9 (5-19); Blood Urea Nitrogen 23 mg/dL (8-23); Calcium 9.5 mg/dL (8.5-10.5); Carbon Dioxide 27 mmol/L (22-29); Chloride 100 mmol/L (98-107); Glomerular Filtration Rate 33.8 mL/min (90-130); Glucose 101 mg/dL (65-115); Osmolality Calculated 286 mOsm/kg (285-295); Potassium 3.9 mmol/L (3.5-5.1); Sodium 136 mmol/L (136-145)
--- NOTE | 2022-08-20 07:19 | SUR.PREOP ---
Dr. Arauz here. Creatinine of 2.0 reported. Will admit patient today for hydration and put on the schedule for [facility] at 0830 tomorrow, 08/21/22. Report call to SOFIE Wiley. Will transfer via bed to [facility].
--- NOTE | 2022-08-20 07:44 | PM.HP ---
Providers/Chief Complaint Admitting Physician: Em Arauz MD Primary Care Provider: AMY Bueno Chief Complaint: R94.39 History of Present Illness Steve Gandara is a 66 year old male with PMHx of CAD s/p CABG x 3, HTN, HLD and ICM.? Coronary angiography on 07/26/2019 via a right femoral approach revealed a normal left main, small circumflex branch, a tiny bypass graft arising from the ramus intermedius, proximal LAD occlusion, a previously placed stent in the LAD in the occluded portion, large dominant RCA ending distally in a posterior left ventricular branch, posterior descending artery occluded at the origin. ?There appeared to be 2 vein grafts, one to the ramus and one to the distal RCA. ?The ramus graft is very small and doesn't appear to provide much flow. ?The distal RCA graft is occluded at the origin. ?The left internal mammary vein graft to the LAD distal to the occluded stent is patent. ?LVEF 40%. ?Medical management was advised. He was in ER with chest pain in May 2022.? His baseline troponin was 50 --> 55, but he did not stay for further evaluation.? He has had some episodes of chest pain since the ER visit, but not as bad as it was then.? He tells me he took 10 NTG total, 10 minutes apart.? He is still taking isosorbide 60mg BID. He underwent stress test that showed moderate sized area of ischemia?in LAD territory.? Prior infarct with lou-infarct ischemia seen in left circumflex artery and RCA territory. He denies orthopnea, PND, lower extremity edema. His chest pain has improved somewhat since adjusting his antianginal medications but he continues to have worsening shortness of breath with exertion. He also complains of back pain and would like to obtain a preop clearance for back surgery. He presented today outpatient for left heart catheterization. His creatinine was noted to have increased to 2 from 1.5 few weeks back. He is being admitted today for IV hydration with plan for coronary angiogram tomorrow. Review of Systems Const: Denies: fatigue Eyes: Denies: change in vision ENMT: Denies: throat pain or epistaxis Card: Reports: chest pain and dyspnea on exertion; Denies: palpitations, irregular heart rhythm, edema, swelling of feet/ankles, lightheadedness, syncope, pre-syncope or orthopnea Resp: Reports: dyspnea; Denies: productive cough or non-productive cough GI: Denies: abdominal pain, nausea, vomiting, hematemesis, diarrhea, constipation or hematochezia : Denies: dysuria or hematuria Musc: Reports: back pain; Denies: extremity pain, extremity swelling, joint pain or muscle weakness Skin/Breast: Denies: rash Neuro: Denies: dizziness Psych: Denies: anxiety or depression Endo: Denies: tired all the time Erik/Lymph: Denies: easy bruising or easy bleeding Medications/Allergies Home Medications Medication Instructions Recorded Confirmed Last Taken Type aspirin 81 mg tablet,delayed 81 mg PO BID 05/29/21 08/12/22 08/20/22 04:30 History release (Adult Low Dose Aspirin) atorvastatin 80 mg tablet 80 mg PO DAILY #30 tabs 08/05/21 08/12/22 08/19/22 19:30 Rx fenofibrate 160 mg tablet 160 mg PO DAILY #30 tabs 08/05/21 08/12/22 08/20/22 04:30 Rx naproxen 500 mg tablet 500 mg PO BID PRN pain #60 tabs 08/05/21 08/12/22 Unknown Rx ibuprofen 800 mg tablet See Rx Instructions .Route 01/15/22 08/12/22 Unknown Rx .COMPLEX #60 tabs isosorbide mononitrate 60 mg 60 mg PO BID #180 tabs 04/23/22 08/12/22 08/20/22 04:30 Rx tablet,extended release 24 hr ramipril 10 mg capsule 10 mg PO BID #180 caps 04/23/22 08/12/22 08/20/22 04:30 Rx ergocalciferol (vitamin D2) 1,250 1,250 mcg PO .WEEKLY #4 caps 05/08/22 08/12/22 08/16/22 Rx mcg (50,000 unit) capsule gabapentin 300 mg capsule See Rx Instructions .Route 05/08/22 08/12/22 08/20/22 04:30 Rx .COMPLEX #90 caps trazodone 100 mg tablet 100 mg PO DAILY #30 tabs 05/08/22 08/20/22 Unknown Rx umeclidinium 62.5 mcg-vilanterol 1 inh inhalation DAILY #60 ea 06/09/22 08/12/22 08/20/22 04:30 Rx 25 mcg/actuation powdr for inhalation (Anoro Ellipta) methocarbamol 750 mg tablet 750 mg PO Q8H PRN Muscle spasms 06/10/22 08/12/22 Unknown Rx and pain #30 tabs celecoxib 200 mg capsule 200 mg PO BID PRN pain #60 caps 06/17/22 08/12/22 Unknown Rx tramadol 50 mg tablet 50 mg PO TID PRN pain #21 tabs 06/17/22 08/12/22 Unknown Rx albuterol sulfate 90 mcg/actuation 2 puff inhalation QID PRN 06/18/22 08/12/22 08/20/22 04:30 Rx aerosol inhaler (ProAir HFA) shortness of breath or wheezing #18 grams ipratropium 0.5 mg-albuterol 3 mg 3 ml inhalation BID #180 mL 06/18/22 08/12/22 08/20/22 04:30 Rx (2.5 mg base)/3 mL nebulization soln ranolazine 500 mg tablet,extended 500 mg PO BID #60 tabs 07/07/22 08/12/22 08/20/22 04:30 Rx release,12 hr (Ranexa) metoprolol tartrate 100 mg tablet See Rx Instructions .Route 08/05/22 08/20/22 08/20/22 04:30 Rx .COMPLEX #60 tabs nitroglycerin 0.4 mg sublingual See Rx Instructions .Route 08/06/22 08/20/22 Unknown Rx tablet .COMPLEX #25 tabs Allergies Allergy/AdvReac Type Severity Reaction Status Date / Time codeine Allergy Mild itching Verified 08/20/22 06:34 PFSH Acute PFSH: Medical History CHF (congestive heart failure), NYHA class II Essential (primary) hypertension Hyperlipidemia, unspecified Lung nodule Spondylosis without myelopathy or radiculopathy, lumbosacral region Surgical History History of PTCA Hx of CABG Hx of vasectomy Family History Father Stroke Cancer Mother CAD (coronary artery disease) Diabetes Brother CAD (coronary artery disease) Hypertension Social History Smoking and tobacco status: current every day smoker cigarettes Packs smoked per day: 1 Years cigarettes smoked: 40 [ Other cigarette details: 1-2 cartons per day] Second hand smoke exposure: Yes Alcohol intake: never Caregiver/support person: Yes Lives independently: Yes Household members: none Marital status: Single Current occupational status: disabled History of recent travel: No Current gender identity: Male Special suzie needs: No Agree to transfusion: Yes Vitals/I&O/Wt Last Vital Signs O2 Del Method 08/20/22 06:41 Weight last 48 hrs Weight 175 lb Physical Exam Narrative: GENERAL: Obese man laying comfortably in bed in no acute distress HEENT: Extraocular movement intact. No pallor or icterus. NECK: central trachea, no JVD, No carotid bruit. CARDIOVASCULAR SYSTEM: S1-S2 regular. No murmur rubs or gallops. RESPIRATORY SYSTEM: Chest clear to auscultation. No wheezes rhonchi or rubs heard. No use of accessory muscles. ABDOMEN: Soft, nontender and nondistended. Normal bowel sounds present. EXTREMITIES: No cyanosis or edema. No signs of chronic venous insufficiency. COLOR EXPERT: Patient is alert oriented ?3. No focal neurological deficits. SKIN: Normal turgor and temperature. PSYCH: Normal insight and judgment. Data 08/20/22 06:16 08/20/22 06:16 A&P Assessment and plan (1) VELIA (acute kidney injury): Baseline creatinine 1.2 in April 2022. Since then creatinine has ranged from 1.7-1 0.5-2 this morning. -Plan for IV hydration -Based on renal function we will proceed with coronary angiogram in the morning. (2) Exertional shortness of breath: Patient continues to have exertional shortness of breath with intermittent chest pains. Chest pain improved since adjustment of antianginals but shortness of breath has been persistent. (3) Abnormal nuclear stress test: (4) Coronary artery disease: Qualifiers: Coronary Disease-Associated Artery/Lesion type: [place] artery [place] vs. transplanted heart: [place] heart Associated angina: unspecified whether angina present Qualified Code(s): I25.10 - Atherosclerotic heart disease of [place] coronary artery without angina pectoris (5) Hx of CABG: (6) Essential (primary) hypertension: (7) Hyperlipidemia, unspecified: Qualifiers: Hyperlipidemia type: unspecified Qualified Code(s): E78.5 - Hyperlipidemia, unspecified Plan Ischemic cardiomyopathy with LVEF of 40% on left heart cath in 2018 and 46% on stress test in June 2022. Obesity Back pain secondary to spinal stenosis and lumbar region Chronic active smoker (50-year history of smoking; 5 to 6 packs/day has cut back to half pack per day) Lung nodule Attestations Medical Necessity Statement*: Patient needs hospital stay for IV hydration preleft heart cath. Coding Level of Care Code Acute Geriatric Care Manager for [facility] Fwd Diagnoses VELIA (acute kidney injury) N17.9 Exertional shortness of breath R06.02 Abnormal nuclear stress test R94.39 Coronary artery disease I25.10 Coronary Disease-Associated Artery/Lesion type: [place] artery [place] vs. transplanted heart: [place] heart Associated angina: unspecified whether angina present Hx of CABG Z95.1 Essential (primary) hypertension I10 Hyperlipidemia, unspecified E78.5 Hyperlipidemia type: unspecified
--- NOTE | 2022-08-20 08:38 | USCV_ITS ---
Steve Gandara Age: 66 Gender: M : 1955 Exam Date: 08/20/2022 09:52 Ordering Phys: Em Arauz MD ([email or web address]) Technologist: NHAN [place] [facility] [place]ication: CHRONIC HEART FAILURE, EXERTIONAL SHORTNESS OF BREATH BP: 166 / 92 HR: 58 Rhythm: Sinus Technical Quality: Adequate MEASUREMENTS (Male / Female) Normal Values 2D ECHO LVOT Diameter 2.0 cm LV Ejection Fraction MOD 2C 59.0 % LV Ejection Fraction 2C AL 61.6 % LA Diameter 3.9 cm LA Width 4.0 cm LA Height 5.6 cm RA Width 4.0 cm RA Height 4.9 cm Aorta at Sinotubular Diameter 2.2 cm IVC Diameter 1.8 cm M-MODE Aortic Annulus Diameter 2.4 cm LA Ao Ratio MM 1.6 MV E Point Septal Separation 1.1 cm DOPPLER AV Peak Velocity 200.3 cm/s LVOT Peak Velocity 98.0 cm/s AV Area Cont Eq vti 1.7 cm squared AV Area Cont Eq pk 1.6 cm squared MV Peak Velocity 120.0 cm/s MV Area PHT 3.9 cm squared Mitral E to A Ratio 1.3 MV E' Velocity 51.0 cm/s Mitral E to MV E' Ratio 15.3 Mitral E to LV E' Lateral Ratio 12.1 Mitral E to LV E' Septal Ratio 20.8 TR Peak Velocity 151.8 cm/s TR Peak Gradient 9.2 mmHg TR Mean Velocity 124.4 cm/s TR Mean Gradient 6.4 mmHg TR Velocity Time Integral 50.8 cm TV Peak E Velocity 48.0 cm/s Right Atrial Pressure 3.0 mmHg Pulmonary Artery Systolic Pressu 12.2 mmHg PV Peak Velocity 132.0 cm/s RV Acceleration Time 0.1 s RV Ejection Time 0.3 s RV AcT/ET 0.4 FINDINGS Left Ventricle Normal left ventricular size and systolic function. Left ventricular ejection fraction is estimated at 55 %. There seems to be hypokinesis of basal to mid inferior sofia. Grade II diastolic dysfunction, moderately elevated filling pressures. Right Ventricle Normal right ventricular size and systolic function. Normal right ventricular systolic pressure. Right Atrium Normal right atrial size. Left Atrium Mildly increased left atrial size. Mitral Valve Structurally normal mitral valve. No mitral valve stenosis. Trace mitral valve regurgitation. Aortic Valve Mildly thickened and calcified trileaflet aortic valve. Aortic valve sclerosis without stenosis. No aortic valve regurgitation. Tricuspid Valve Structurally normal tricuspid valve. No tricuspid valve stenosis. Trace tricuspid valve regurgitation. Pulmonic Valve Structurally normal pulmonic valve. No pulmonary valve stenosis. Trace pulmonary valve regurgitation. Pericardium No pericardial effusion. Aorta Normal size aortic root and proximal ascending aorta. IVC Normal IVC dimension with >50% respiratory change of the inferior vena cava. CONCLUSIONS 1. Normal left ventricular size and systolic function. Left ventricular ejection fraction is estimated at 55 %. There seems to be hypokinesis of basal to mid inferior sofia. Grade II diastolic dysfunction, moderately elevated filling pressures. 2. When compared to previous study dated 07/13/2019, there may not have been any significant change. Em Arauz MD (Electronically Signed) Final Date: 25 August 2022 08:26 S
[2022-08-20] MEDS: sodium chloride 0.9% 1,000 ML 100 ML IV ×2 (08:45→17:38)
--- NOTE | 2022-08-20 08:59 | PC.CHAP ---
Pastoral Care Encounter/Spiritual Assessment Type of Contact [] Declined wool fleece grader visit [] Patient/Family/Request visit [] Outpatient visit [] Follow-up visit [] Physician referral [] Code/Alert [x] Routine visit [] Staff referral [] Actively dying [] Patient sleeping [] Family support [] [] Out of room [] Palliative care [] [] Receiving care in room [] Pre-surgical visit [] Trauma [] Long length of stay [] ICU visit [] Other: Relational/Emotional Strength [x] Patient feels connected with others/family/visitors/staff [] Distress [] Loneliness/isolation [] Abandonment Spirituality of Patient [] Person of Tina [] Attends [facility] of their Tina [] Believes in Prayer [] Reads Bible or Shinto materials [x] There are Spiritual issues to be addressed Supervisor Toy [employer] Former Interventions [] Prayer [] Active listening [] Non-anxious presence [] Spiritual/emotional support [] Crisis/trauma care [] Spiritual counseling [] Bereavement support [] Provided bereavement packet [] Provided Bible/devotional materials [] Provided toy/stuffed animal, coloring book to patient or family member [] Provided Communion [] Anointing/[place] [] Salvation [] Completed spiritual assessment [] Other: Impact on Illness or Injury [] Angry [] Fearful [] Anxious [] Often cries [] Exhaustion [] Unable to work [] Unable to attend baptism [] Unable to walk/stand [] Unable to read [] Unable to drive [] Unable to eat/drink [] Unable to sleep [] Unable to be with family [] Patient intubated [] Other: Summary Pt is having to increase kidney function then heart stints so looking at a couple of days at least in hospital. Time spent with patient 5m
[2022-08-20] MEDS: metoprolol tartrate 50 mg Tablet 100 MG PO ×2 (09:26→17:40)
[2022-08-20] MEDS: atorvastatin 40 mg Tablet 80 MG PO (09:26)
[2022-08-20] MEDS: aspirin 81 mg EC Tablet PO ×2 (09:26→17:40)
[2022-08-20] MEDS: fenofibrate 145 mg Tablet PO (09:26)
[2022-08-20] MEDS: isosorbide mononitrate ER 60 mg Tablet PO ×2 (09:26→17:40)
[2022-08-20] MEDS: ranolazine (12HR) 500 mg Tablet PO ×2 (09:26→17:40)
[2022-08-20] MEDS: heparin 5,000 unit/mL INJ 1 mL 5000 UNIT SUBCUT ×2 (09:27→19:50)
[2022-08-20] MEDS: perflutren protein-a microsphr 0.22 mg/mL SDV 3 mL IV (10:29)
[2022-08-20] MEDS: ipratropium-albuterol 3 mL Neb INHALATION ×2 (11:34→15:28)
[2022-08-20] MEDS: trazodone 100 mg Tablet PO (19:50)
--- NOTE | 2022-08-20 19:59 | PC.NURSE ---
Dr. Arauz notified of blood pressure of 189/96. Heart rate in the 50s. Amlodipine 5 mg x1 now and daily ordered.
[2022-08-20] MEDS: amlodipine 5 mg Tablet PO (20:21)
[2022-08-21] VITALS (18 sets, daily range): BP systolic 143–177; BP diastolic 70–92; PULSE 58–71; RESP 14–21; TEMP 36.4–37; O2SAT 93–97
[2022-08-21] MEDS: sodium chloride 0.9% 1,000 ML 100 ML IV ×2 (03:02→10:17)
[2022-08-21 05:11] LABS: Blood Urea Nitrogen 17 mg/dL (8-23); Calcium 8.8 mg/dL (8.5-10.5); Carbon Dioxide 23 mmol/L (22-29); Chloride 105 mmol/L (98-107); Glucose 91 mg/dL (65-115); Osmolality Calculated 285 mOsm/kg (285-295); Sodium 137 mmol/L (136-145)
[2022-08-21 05:46] LABS: Estmated Average Glucose 123; Hemoglobin A1C 5.9 % (4.0-6.0)
--- NOTE | 2022-08-21 07:51 | PC.NURSE ---
off unit to photo lab specialist
--- NOTE | 2022-08-21 08:30 | XACV_ITS ---
Exam Room: 2 Ht: 157 cm Wt: 79 kg BSA: 1.90 m2 Gender: Male : 1955 Any Known Allergies: Codeine Exam Priority: Routine Procedure(s): Procedure Description: Diagnostic procedure Diagnostic Cath Status: Elective Diagnostic Findings * 66-year-old man with past medical history of CAD s/p CABG x3, hypertension, hyperlipidemia and ischemic cardiomyopathy. He was in the ER with chest discomfort and underwent stress test that showed moderate area of ischemia in LAD territory and prior infarct with lou-infarct ischemia in circumflex and right coronary artery territory. * Normal left main with no disease. * Small circumflex artery that ends as small obtuse marginal artery. Proximal circumflex with 99% stenosis. * Chronic total occlusion of proximal left anterior descending artery. Distal LAD is being filled by VILLAGRAN to LAD. * Dominant right coronary artery with chronic total occlusion of proximal right coronary artery. Faint right to right collaterals. * Small ramus intermedius artery known to have very tiny bypass graft with little flow in 07/2019. Vein graft to ramus intermedius artery was not accessed. * Patent VILLAGRAN to distal LAD. Vein graft to right coronary artery and ramus artery known to be occluded. * Case was discussed and images were reviewed with Dr. Tejada. Conclusions 1. Small circumflex with proximal 99% stenosis. Decision was made to manage medically. 2. Chronic total occlusion of proximal left anterior descending artery and proximal right coronary artery (new when compared to before). 3. Patent VILLAGRAN to distal LAD. Vein graft to right coronary artery and ramus artery known to be occluded. Recommendations * Return to inpatient for close monitoring and routine cath care. * Continue medical management and risk factor modification. Pressures Phase:Rest AO : 100 / 74 ( 90 ) @ 8:11:00 AM 137 / 81 ( 107 ) @ 8:20:00 AM Clinical Evaluation EBL: 5mL-10mL Procedural Details Procedure Consent Obtained. Admit Source: In Patient. Pre-Procedure Time Out. Identified patient by full name and date of as verbalized by the patient/guarantor. Does the consent match the physician's order: Yes. Accurate & Complete Informed Consent: Yes. Inpatient/Outpatient History & Physical on Chart: Yes. If H&P is completed, is and addenduem needed: No; If yes, is the addendum complete: N/A. Visualize and Verify Site with Patient/Guarantor: N/A. Relevant Radiology Images available: N/A. The risks, benefits, and alternatives of sedation and/or procedure were discussed by physician. The patient agrees to continue. Procedure started. [facility] Clinical Fraility Score: 4: Vulnerable. Dip Guider Stoves Indications: Worsening Angina. Chest Pain Symptom Assessment: Typical Angina Symptoms. Cardiovascular Instability: No,. Correct patient, site and procedure confirmed by cath team. Current diagnosis: Chest Pain. PERRLA. Strong, equal hand automatic pinsetter adjuster bilaterally. Lungs clear x 5 lobes. IV Site on Arrival: 20 gauge in the left anticubital. IV Fluids: 0.9% NaCl at KVO. 500 mL infused prior to labor relations worker. Pre Procedural Pulses: bilateral dorsalis pedis was 3+. Pre Procedural Pulses: bilateral posterior tibial was 3+. Pre Procedural Pulses: bilateral radial was 3+. Oxygen started at 2liters/min via nasal canula. right groin was prepped with chloroprep then draped in the usual sterile fashion. left groin was prepped with chloroprep then draped in the usual sterile fashion. Baseline sample Acquired. HR: 59 BPM. Physician notified. Physician arrived. Physician scrubbed in. Immediate Pre-Procedure Time Out. Correct Patient: Yes; Correct Procedure: Yes; Correct Site: Yes; Correct Patient Position: Yes; Correct Supplies: Yes; Dried Flammable Prep: Yes; Blood Products Available: Yes;. Lidocaine 1% infiltrated to the right groin. Arterial access obtained with micropuncture set. A 5 trinidadian JL4 catheter in over wire. Multiple views taken of left coronary artery. Catheter removed over the standard wire. A 5 trinidadian JR4 catheter in over wire. Multiple views taken of right coronary artery. JR4 catheter out over wire. Exchange wire in. A 5 trinidadian IM catheter in over wire. VILLAGRAN to LAD visualized and patent. Catheter out. Dr Finley consulted. Physicians review of cine films. Sheath flushed manually to maintain patency. Sheath(s) sutured into position with 2-0 silk and sterile 4x4's and Op-site applied over the site. No oozing or signs and symptoms of hematoma noted. Post Procedure: Pulses reassessed and unchanged. PERRLA. Strong, equal hand automatic pinsetter adjuster bilaterally. No VTE prophylaxis required. Total IV fluids: 75 mL. Post-op diagnosis: multivessel CAD, Patent VILLAGRAN to LAD. Complications: none. Estimated blood loss: 5mL-10mL. Responsiveness - Normal response to verbal stimuli; alert and oriented, PERRLA. Airway - Unaffected, no intervention required; spontaneous ventilation. Circulation: W/N/L, pulses unchanged. Nausea/Vomiting: No. Procedure completed. Patient transferred by bed to 1st floor. Medication's Wasted: Heparin = 4000 units. Vital chart was stopped. Access Site Site: Right Femoral artery Sheath Size: 6 Fr Hemostasis Success: Unsuccessful Procedure Medications Start: 8:03 AM Stop: 8:03 AM Medication: Versed Amount: 1 mg Route: I.V. Start: 8:03 AM Stop: 8:03 AM Medication: Fentanyl Amount: 50 mcg Route: I.V. Start: 8:04 AM Stop: 8:04 AM Medication: Versed Amount: 1 mg Route: I.V. Start: 8:04 AM Stop: 8:04 AM Medication: Fentanyl Amount: 50 mcg Route: I.V. I, the attending physician, have reviewed and verified all procedure medications. Yes, all medications given per verbal order History/Risk Factors Hypertension: Yes Dyslipidemia: Yes Peripheral Arterial Disease (PAD): No Myocardial Infarction (NC): Yes Obesity: No Renal Disease: No Tobacco Use: Current/Recent(w/in 1 year) Prior Interventions PCI: Yes CABG: Yes Valve Surgery: No Date of PCI: 02/20/2004 Report Signatures Finalized by Em Arauz MD on 09/08/2022 05:58 PM
--- NOTE | 2022-08-21 09:02 | P.HPUD_ITS ---
Surgery/Procedure H&P Update DATE OF PROCEDURE: August 21, 2022 DATE H&P PERFORMED: 08/20/22 H&P UPDATE INFORMATION: I have reviewed H&P completed within last 30 days, I have examined patient prior to procedure and No changes to prior documentation PREOP DIAGNOSIS: Chest pain, abnormal stress tset PLANNED PROCEDURE: Operation Date: 08/21/22 08:30 Proposed Procedures p [facility] w/wo [id number],R94.93,R07.9(Left) - Em Arauz MD PATIENT REASSESSED PRIOR TO SEDATION, WITH NO CHANGE NOTED: Yes PHYSICAL EXAM: alert, oriented x 3, clear to auscultation bilaterally and regular rate & rhythm AIRWAY EVAL/ANESTHESIA PLAN: ASA III, Monitored Anesthesia, Local Anesthesia, Risks, benefits & alternatives of sedation and/or procedure discussed and Patient agrees to continue as planned
--- NOTE | 2022-08-21 09:05 | PC.NURSE ---
sheath removal Explained procedure to pt. Right femoral artery felt via palpation. 6 Fr sheath removed from right femoral artery. manual pressure held for 20 mins. Hemostasis achieved. no hematoma, bleeding or swelling noted. pt tolerated the procedure well. 6 Fr sheath catheter tip intact. instructed pt on 6 hr bedrest and activity restrictions to right lower extr. Instructed pt to notify nurse for anyunusual pain,burning sensation or swelling or wetness on right groin. urinal provided. call light provided closest to pt.
[2022-08-21] MEDS: fenofibrate 145 mg Tablet PO (10:11)
[2022-08-21] MEDS: ranolazine (12HR) 500 mg Tablet PO (10:12)
[2022-08-21] MEDS: aspirin 81 mg EC Tablet PO (10:12)
[2022-08-21] MEDS: isosorbide mononitrate ER 60 mg Tablet PO (10:14)
[2022-08-21] MEDS: amlodipine 5 mg Tablet PO (10:14)
[2022-08-21] MEDS: atorvastatin 40 mg Tablet 80 MG PO (10:15)
[2022-08-21] MEDS: metoprolol tartrate 50 mg Tablet 100 MG PO (10:19)
--- NOTE | 2022-08-21 10:42 | PC.CHAP ---
Pastoral Care Encounter/Spiritual Assessment Type of Contact [] Declined fermenting cellars receiver visit [] Patient/Family/Request visit [] Outpatient visit [] Follow-up visit [] Physician referral [] Code/Alert [] Routine visit [] Staff referral [] Actively dying [] Patient sleeping [] Family support [] [] Out of room [] Palliative care [] [] Receiving care in room [] Pre-surgical visit [] Trauma [] Long length of stay [] ICU visit [x] Other: dismissed Relational/Emotional Strength [] Patient feels connected with others/family/visitors/staff [] Distress [] Loneliness/isolation [] Abandonment Spirituality of Patient [] Person of Tina [] Attends Temple of their Tina [] Believes in Prayer [] Reads Bible or Worship materials [] There are Spiritual issues to be addressed Filter Press Supervisor Interventions [] Prayer [] Active listening [] Non-anxious presence [] Spiritual/emotional support [] Crisis/trauma care [] Spiritual counseling [] Bereavement support [] Provided bereavement packet [] Provided Bible/devotional materials [] Provided toy/stuffed animal, coloring book to patient or family member [] Provided Communion [] Anointing/[place] [] Salvation [] Completed spiritual assessment [] Other: Impact on Illness or Injury [] Angry [] Fearful [] Anxious [] Often cries [] Exhaustion [] Unable to work [] Unable to attend buddhist [] Unable to walk/stand [] Unable to read [] Unable to drive [] Unable to eat/drink [] Unable to sleep [] Unable to be with family [] Patient intubated [] Other: Summary dismissed Time spent with patient 5 mins
--- NOTE | 2022-08-21 12:39 | P.DS_ITS ---
Discharge Providers Date of Admission: 08/20/22 07:23 Date of Discharge: August 21, 2022 Attending Provider at Admission: Em Arauz MD Attending Provider at Discharge: Em Arauz MD Primary Care Provider: AMY Bueno Diagnoses at Discharge Discharge Diagnosis (1) VELIA (acute kidney injury): Status: Resolved (2) Exertional shortness of breath: Status: Acute (3) Abnormal nuclear stress test: Status: Acute (4) Coronary artery disease: Status: Acute Qualifiers: Associated angina: unspecified whether angina present Coronary Disease- Associated Artery/Lesion type: southern ute artery [place] vs. transplanted heart: southern ute heart Qualified Code(s): I25.10 - Atherosclerotic heart disease of southern ute coronary artery without angina pectoris (5) Hx of CABG: Status: Acute (6) Essential (primary) hypertension: Status: Acute (7) Hyperlipidemia, unspecified: Status: Acute Qualifiers: Hyperlipidemia type: unspecified Qualified Code(s): E78.5 - Hyperlipidemia, unspecified Reason for Visit Reason for Visit: R94.39 Brief History: Steve Gandara is a 66 year old male with PMHx of CAD s/p CABG x 3, HTN, HLD and ICM.? Coronary angiography on 07/26/2019 via a right femoral approach revealed a normal left main, small circumflex branch, a tiny bypass graft arising from the ramus intermedius, proximal LAD occlusion, a previously placed stent in the LAD in the occluded portion, large dominant RCA ending distally in a posterior left ventricular branch, posterior descending artery occluded at the origin. ?There appeared to be 2 vein grafts, one to the ramus and one to the distal RCA. ?The ramus graft is very small and doesn't appear to provide much flow. ?The distal RCA graft is occluded at the origin. ?The left internal mammary vein graft to the LAD distal to the occluded stent is patent. ?LVEF 40%. ?Medical management was advised. ?He was in ER with chest pain in May 2022.? His baseline troponin was 50 --> 55, but he did not stay for further evaluation.? He has had some episodes of chest pain since the ER visit, but not as bad as it was then.? He tells me he took 10 NTG total, 10 minutes apart.? He is still taking isosorbide 60mg BID. He underwent stress test that showed moderate sized area of ischemia?in LAD territory.? Prior infarct with lou-infarct ischemia seen in left circumflex artery and RCA territory. He denies orthopnea, PND, lower extremity edema.? His chest pain has improved somewhat since adjusting his antianginal medications but he continues to have worsening shortness of breath with exertion.? He also complains of back pain and would like to obtain a preop clearance for back surgery. He presented to outpatient for left heart catheterization.? His creatinine was noted to have increased to 2 from 1.5 few weeks back.? Hospital Course Hospital Course He is being admitted for IV hydration. Creatinine improved to 1.4. His cardiac cathetarization showed proximally occluded RCA, RI with severe stenosis in mid segment , patent VILLAGRAN to LAD.. After discussion with Dr. Tejada, decision was made to proceed with medical management. Physical Exam Narrative: GENERAL: Obese man laying comfortably in bed in no acute distress HEENT: Extraocular movement intact. ? No pallor or icterus. NECK: central trachea, no JVD,? No carotid bruit. CARDIOVASCULAR SYSTEM: S1-S2 regular.? No murmur rubs or gallops. RESPIRATORY SYSTEM: Chest clear to auscultation.? No wheezes rhonchi or rubs heard. No use of accessory muscles. ABDOMEN: Soft, nontender and nondistended.? Normal bowel sounds present.? EXTREMITIES: No cyanosis or edema.? No signs of chronic venous insufficiency. 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 No focal neurological deficits.? SKIN: Normal turgor and temperature.? PSYCH: Normal insight and judgment.? Discharge Data Studies Completed and Pending Pending at discharge Category Date Time Status ADULT MINISTRIES DIRECTOR request for service Routine Exams 08/21/22 08:30 Taken Basic Metabolic Panel AM LABS Lab 08/22/22 04:00 Ordered Basic Metabolic Panel AM LABS Lab 08/23/22 04:00 Ordered Magnesium AM LABS Lab 08/22/22 04:00 Ordered Magnesium AM LABS Lab 08/23/22 04:00 Ordered CV. echo wo/w contrast [id number] Routine Ultrasound 08/20/22 08:38 Taken Laboratory Results WBC 11.5 10^3/uL (4.0-10.0) H 08/20/22 06:16 RBC 5.14 10^6/uL (4.1-5.3) 08/20/22 06:16 Hgb 16.4 g/dL (11.7-16.6) 08/20/22 06:16 Hct 50.2 % (42.0-52.0) 08/20/22 06:16 MCV 97.7 fl (80-94) H 08/20/22 06:16 MCH 31.9 pg (28.0-34.0) 08/20/22 06:16 MCHC 32.7 g/dL (30.0-36.0) 08/20/22 06:16 RDW 14.5 % (12.1-15.1) 08/20/22 06:16 Plt Count 219 10^3/cmm (130-400) 08/20/22 06:16 MPV 10.5 fL (7.4-10.4) H 08/20/22 06:16 Neut % (Auto) 61.8 % 08/20/22 06:16 Lymph % (Auto) 24.3 % 08/20/22 06:16 [place] % (Auto) 10.9 % 08/20/22 06:16 Eos % (Auto) 2.1 % 08/20/22 06:16 Baso % (Auto) 0.6 % 08/20/22 06:16 Neut # (Auto) 7.07 10^3/uL (1.8-7.7) 08/20/22 06:16 Lymph # (Auto) 2.8 10^3/uL (0.8-4.8) 08/20/22 06:16 [place] # (Auto) 1.3 10^3/uL (0.2-0.9) H 08/20/22 06:16 Eos # (Auto) 0.2 10^3/uL (0.0-0.8) 08/20/22 06:16 Baso # (Auto) 0.1 10^3/uL (0.0-0.1) 08/20/22 06:16 Nucleated RBC % (auto) 0 % 08/20/22 06:16 Nucleated RBCs # 0.0 /100WBC 08/20/22 06:16 Sodium 137 mmol/L (136-145) 08/21/22 04:12 Potassium 4.0 mmol/L (3.5-5.1) 08/21/22 04:12 Chloride 105 mmol/L (98-107) 08/21/22 04:12 Carbon Dioxide 23 mmol/L (22-29) 08/21/22 04:12 Anion Gap 13.0 (5-19) 08/21/22 04:12 BUN 17 mg/dL (8-23) 08/21/22 04:12 Creatinine 1.4 mg/dL (0.7-1.2) H 08/21/22 04:12 GFR Calculation 51.0 mL/min (90-130) L 08/21/22 04:12 Glucose 91 mg/dL (65-115) 08/21/22 04:12 Estimat Average Glucose 123 08/21/22 04:12 Hemoglobin A1c 5.9 % (4.0-6.0) 08/21/22 04:12 Calculated Osmolality 285 mOsm/kg (285-295) 08/21/22 04:12 Calcium 8.8 mg/dL (8.5-10.5) 08/21/22 04:12 Magnesium 2.0 mg/dL (1.7-2.3) 08/21/22 04:12 Vitals Last Vital Signs Temp 98.6 F 08/21/22 11:17 Pulse 63 08/21/22 12:20 Resp 18 08/21/22 12:20 BP 173/75 08/21/22 11:17 Pulse Ox 93 08/21/22 12:20 O2 Del Method 08/21/22 12:20 Discharge Plan Discharge Patient Disposition: Home Condition: Stable Prescriptions: New amlodipine 5 mg Tablet 5 mg PO DAILY Qty: 30 3RF Continued naproxen 500 mg tablet 500 mg PO BID PRN (Reason: pain) Qty: 60 5RF fenofibrate 160 mg tablet 160 mg PO DAILY Qty: 30 5RF atorvastatin 80 mg tablet 80 mg PO DAILY Qty: 30 5RF aspirin [Adult Low Dose Aspirin] 81 mg tablet,delayed release (DR/EC) 81 mg PO BID Anoro Ellipta 62.5-25 mcg/actuation blister with device 1 inh inhalation DAILY Qty: 60 3RF ipratropium-albuterol 0.5 mg-3 mg(2.5 mg base)/3 mL solution for nebulization 3 ml inhalation BID Qty: 180 3RF isosorbide mononitrate 60 mg tablet extended release 24 hr 60 mg PO BID Qty: 180 3RF ergocalciferol (vitamin D2) 1,250 mcg (50,000 unit) capsule 1,250 mcg PO .WEEKLY Qty: 4 5RF gabapentin 300 mg capsule See Rx Instructions .ROUTE .COMPLEX Qty: 90 2RF Dose Instruction: TAKE 1 CAPSULE BY MOUTH THREE TIMES DAILY Rx Instructions: TAKE 1 CAPSULE BY MOUTH THREE TIMES DAILY trazodone 100 mg tablet 100 mg PO DAILY Qty: 30 2RF celecoxib 200 mg capsule 200 mg PO BID PRN (Reason: pain) Qty: 60 0RF tramadol 50 mg tablet 50 mg PO TID PRN (Reason: pain) Qty: 21 0RF ibuprofen 800 mg tablet See Rx Instructions .ROUTE .COMPLEX Qty: 60 3RF Dose Instruction: TAKE 1 TABLET BY MOUTH TWICE DAILY NEEDED FOR PAIN *DO NOT TAKE WITH NAPROXEN OR OTHER NSAIDS* Rx Instructions: TAKE 1 TABLET BY MOUTH TWICE DAILY NEEDED FOR PAIN *DO NOT TAKE WITH NAPROXEN OR OTHER NSAIDS* albuterol sulfate [ProAir HFA] 90 mcg/actuation HFA aerosol inhaler 2 puff INHALATION QID PRN (Reason: shortness of breath or wheezing) Qty: 18 5RF ranolazine [Ranexa] 500 mg tablet extended release 12 hr 500 mg PO BID Qty: 60 6RF metoprolol tartrate 100 mg tablet See Rx Instructions .ROUTE .COMPLEX Qty: 60 0RF Dose Instruction: Take 1 tablet by mouth twice daily Rx Instructions: Take 1 tablet by mouth twice daily nitroglycerin 0.4 mg tablet, sublingual See Rx Instructions .ROUTE .COMPLEX Qty: 25 3RF Dose Instruction: DISSOLVE ONE TABLET UNDER THE TONGUE EVERY 5 MINUTES NEEDED FOR CHEST PAIN. DO NOT EXCEED A TOTAL OF 3 DOSES IN 15 MINUTES Rx Instructions: DISSOLVE ONE TABLET UNDER THE TONGUE EVERY 5 MINUTES NEEDED FOR CHEST PAIN. DO NOT EXCEED A TOTAL OF 3 DOSES IN 15 MINUTES methocarbamol 750 mg tablet 750 mg PO Q8H PRN (Reason: Muscle spasms and pain) Qty: 30 0RF Discontinued ramipril 10 mg capsule 10 mg PO BID Qty: 180 3RF No Action Medrol ([place]) 4 mg tablets,dose pack See Rx Instructions .ROUTE .COMPLEX Qty: 21 0RF Rx Instructions: orally per package directions Tamiflu 75 mg capsule 75 mg PO BID 5 Days Qty: 10 0RF Discharge Orders: Discharge Order (Routine); Ordered 08/21/22 Ordered By: Em Arauz Other Ambulatory Orders: Basic Metabolic Panel (Routine) Timeframe: 1 Week Facility: [facility] - Location: Lab - Main Lab Ordered By: Em Arauz Referrals: Monserrat Hernandez FNP [Nurse Practitioner] - 7-10 days (You will have an appointment with Monserrat Hernandez on September 02, at 09:45 AM. If you have to reschedule your appointment, please call the clinic ahead of time. ) Discharge Diet: Cardiac Discharge Activity: Limit activity as instructed Patient Instructions: Amlodipine (By mouth), Post Angiogram Home Care Instructions Activity Restrictions/Additional Instructions: Do not lift anything more than 5 lbs for 1 week. Keep the site dry and clean No swimming, tub bathing. May shower. Take medications as prescribed and follow up as scheduled. Discharge Attestations Time Spent in Discharge Care*: greater than 30 min Specific Discharge Activities: educating patient, educating and/or supporting family/caregiver, documenting/other paperwork and evaluating patient/reviewing data Time Spent in Smoking Cessation: 3 to 10 minutes Quality Metrics Clinical Quality Measures [ No reported AMI, CVA or VTE this stay] Coding Level of Care Code Acute g [facility] note Diagnoses VELIA (acute kidney injury) N17.9 Exertional shortness of breath R06.02 Abnormal nuclear stress test R94.39 Coronary artery disease I25.10 Associated angina: unspecified whether angina present Coronary Disease-Associated Artery/Lesion type: southern ute artery [place] vs. transplanted heart: southern ute heart Hx of CABG Z95.1 Essential (primary) hypertension I10 Hyperlipidemia, unspecified E78.5 Hyperlipidemia type: unspecified
== END 2022-08-21 16:43 | disposition home or self-care (01) ==
LOC: CSU 08:38
PROVIDERS: Admitting Provider Internal Medicine Cardiovascular Disease; PCP Nurse Practitioner Family; Visit Provider Internal Medicine Cardiovascular Disease
DX: R94.39 Abnormal result of other cardiovascular function study (principal); R06.02 Shortness of breath; N17.9 Acute kidney failure, unspecified; I25.10 Atherosclerotic heart disease of native coronary artery without angina pectoris; Z95.1 Presence of aortocoronary bypass graft; E78.5 Hyperlipidemia, unspecified; Z79.82 Long term (current) use of aspirin; I11.0 Hypertensive heart disease with heart failure; I50.9 Heart failure, unspecified; F17.210 Nicotine dependence, cigarettes, uncomplicated; I25.5 Ischemic cardiomyopathy; E66.9 Obesity, unspecified; Z68.33 Body mass index [BMI] 33.0-33.9, adult; M48.061 Spinal stenosis, lumbar region without neurogenic claudication; R91.1 Solitary pulmonary nodule
CPT/HCPCS: 36415; 80048; 83036; 83735; 85025; 93455; 94640; 96372; 99152; 99153; C1769; C1887; C1894; C8929; G0378; J1644; J2250; J3010; J7030; Q0163; Q9956; Q9967

== ENCOUNTER 2022-08-24 23:30 | Emergency (ER) | payer MEDICAID, SELFPAY ==
[2022-08-24 23:40] VITALS: BP 135/69; PULSE 76; RESP 23; TEMP 37.1; O2SAT 93
[2022-08-24 23:58] VITALS: BP 154/66; PULSE 77; TEMP 37.4; O2SAT 94
[2022-08-25 00:15] VITALS: BP 154/66; PULSE 76; RESP 20; O2SAT 93
--- NOTE | 2022-08-25 00:35 | XRR_ITS ---
PROCEDURE INFORMATION: Exam: XR Chest Exam date and time: 08/25/2022 12:41 AM Age: 66 years old Clinical indication: Shortness of breath; Additional info: SOB TECHNIQUE: Imaging protocol: Radiologic exam of the chest. Views: 1 view. COMPARISON: CR (CHEST, ) 06/19/2022 2:24 AM FINDINGS: Tubes, catheters and devices: Sternal wires. Lungs: Unremarkable. No consolidation. Pleural spaces: Unremarkable. No pleural effusion. No pneumothorax. Heart/Mediastinum: Cardiomegaly. Bones/joints: Unremarkable. XR/XR chest 1V portable [id number] IMPRESSION: Cardiomegaly, negative for infiltrate.
--- NOTE | 2022-08-25 00:35 | ECG_ITS ---
[facility] Test Date: 2022-08-25 Pat Name: Steve Gandara Department: Room: Gender: Male [employer] Room Supervisor: : 1955 Requested By: Arie Cedillo Order Number: [id number] Felipe MD: Sami Tejada M.D. Measurements Intervals [place] Rate: 74 P: 26 [place]: 157 QRS: 84 QRSD: 105 T: 198 QT: 361 QTc: 401 Interpretive Statements SINUS RHYTHM NONSPECIFIC ST & T-WAVE ABNORMALITY Compared to ECG 06/19/2022 03:58:37 Possible ischemia no longer present T-wave abnormality still present Electronically Signed On 08-25-2022 19:05:15 ROOM SERVICE WAITER by Sami Tejada M.D. [id number]
[2022-08-25] MEDS: ipratropium-albuterol 3 mL Neb INHALATION (01:01)
[2022-08-25 01:03] VITALS: PULSE 77; RESP 16; O2SAT 92
[2022-08-25 01:15] VITALS: BP 144/69; PULSE 75; O2SAT 93
[2022-08-25 01:17] LABS: ABG PCO2 38.7 mmHg (35-45); ABG PH Result 7.41 (7.35-7.45); Arterial Blood Gas Hematocrit 51.8 % (42-52); Base Excess ABG 0.2 mmol/L (-2.0-2.0); Blood Gas Allen Test Pos; Blood Gas Sample Site Radial, left; Blood Gas Sample Type Arterial; Carboxyhemoglobin 1.2 %THgb (0.4-20.1); HCO3 ABG 24.6 mmol/L (22-26); Methemoglobin 0.5 % (0.4-1.5); Oxygen Device ROOM AIR; PO2 ABG 65.7 mmHg (80.0-100.0); Total Hemoglobin 16.9 g/dL (14-18)
[2022-08-25 01:18] LABS: Influenza A by IFA positive (Negative); Influenza B by IFA negative (Negative)
[2022-08-25 01:19] LABS: SARS Covid-2 Antigen negative (Negative)
--- NOTE | 2022-08-25 01:25 | ECG_ITS ---
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 Measurements Intervals [place] Rate: 85 P: 61 MS: 160 QRS: 80 QRSD: 108 T: 122 QT: 341 QTc: 406 Interpretive Statements SINUS RHYTHM NONSPECIFIC ST & T-WAVE ABNORMALITY Compared to ECG 06/19/2022 03:58:37 Possible ischemia no longer present T-wave abnormality still present Electronically Signed On 08-25-2022 19:05:04 LEADERSHIP PROGRAM ASSOCIATE by Sami Tejada M.D. [email or web address]
[2022-08-25 01:35] LABS: Basophils # 0.1 10^3/uL (0.0-0.1); Basophils % 0.7 %; Eosinophils # 0.1 10^3/uL (0.0-0.8); Eosinophils % 1.2 %; Hematocrit 52.6 % (42.0-52.0); Hemoglobin 17.3 g/dL (11.7-16.6); Lymphocytes # 1.2 10^3/uL (0.8-4.8); Lymphocytes % 10.4 %; Mean Corpuscular HGB Conc 32.9 g/dL (30.0-36.0); Mean Corpuscular Hemoglobin 31.9 pg (28.0-34.0); Mean Platelet Volume 11.5 fL (7.4-10.4); Monocytes # 1.5 10^3/uL (0.2-0.9); Monocytes % 12.6 %; Neutrophils # 8.73 10^3/uL (1.8-7.7); Neutrophils % 74.8 %; Nucleated Red Blood Cells % 0 %; Platelet Count 205 10^3/cmm (130-400); Red Blood Count 5.42 10^6/uL (4.1-5.3); Red Cell Distribution Width 14.4 % (12.1-15.1); White Blood Count 11.7 10^3/uL (4.0-10.0)
[2022-08-25 02:00] LABS: Alanine Aminotransferase 17 U/L (0-41); Albumin Level 4.5 g/dL (3.5-5.2); Alkaline Phosphatase 61 U/L (40-130); Anion Gap 12.3 (5-19); Aspartate Amino Transferase 28 U/L (0-40); Blood Urea Nitrogen 26 mg/dL (8-23); Calcium 10.6 mg/dL (8.5-10.5); Carbon Dioxide 30 mmol/L (22-29); Chloride 91 mmol/L (98-107); Globulin 3.9 g/dL (1.3-4.6); Glomerular Filtration Rate 30.3 mL/min (90-130); Glucose 94 mg/dL (65-115); NT Pro B Type Natriuretic Pept 1212 pg/mL (0-125); Osmolality Calculated 273 mOsm/kg (285-295); Potassium 4.3 mmol/L (3.5-5.1); Sodium 129 mmol/L (136-145); Total Bilirubin 0.5 mg/dL (0.15-1.2); Total Protein 8.4 g/dL (6.6-8.7)
[2022-08-25 02:15] VITALS: BP 150/73; PULSE 78; RESP 18; O2SAT 93
[2022-08-25 02:23] LABS: Troponin(5th) Baseline 37 ng/L (0-15)
[2022-08-25 02:39] LABS: Troponin 5 2HR 32.17 ng/L (0-15); Troponin 5 2HR Delta -4.83 ABS# (0-10)
[2022-08-25] MEDS: oseltamivir phosphate 75 mg Capsule PO (02:56)
[2022-08-25 03:10] VITALS: BP 146/72; PULSE 96; RESP 18; TEMP 37.2; O2SAT 100
--- NOTE | 2022-08-25 03:11 | W.ED.FEVER ---
HPI - Fever General: Chief Complaint: Fever Stated Complaint: SOB, fever, chills Time Seen by Provider: 08/25/22 00:14 Source: patient and family History of Present Illness: 66-year-old gentleman who had a right heart catheterization at this facility . For the past 48 hours or so, he has noted shortness of breath, cough, and fever. Minimal chest discomfort. He had 1 episode of vomiting after a coughing fit last night. He feels unwell. No known sick contacts MD elicited complaint: fever Pertinent past history: other Onset (ago): day(s) Associated symptoms: Reports headache(s), myalgias, nasal congestion, nausea, rhinorrhea, short of breath, sore throat and vomiting; Deny abdominal pain, chest pain, confusion or diarrhea Review of Systems Const: Reports: fever(s) and body aches ENMT: Reports: throat pain and nasal congestion Card: Denies: chest pain Resp: Reports: dyspnea and non-productive cough GI: Reports: nausea and vomiting; Denies: abdominal pain or diarrhea Neuro: Reports: headache(s); Denies: confusion PFSH ED PFSH: Medical History CHF (congestive heart failure), NYHA class II Essential (primary) hypertension Hyperlipidemia, unspecified Lung nodule Spondylosis without myelopathy or radiculopathy, lumbosacral region Surgical History History of PTCA Hx of CABG Hx of vasectomy Family History Father Stroke Cancer Mother CAD (coronary artery disease) Diabetes Brother CAD (coronary artery disease) Hypertension Social History Smoking and tobacco status: current every day smoker cigarettes Packs smoked per day: 1 Years cigarettes smoked: 40 [ Other cigarette details: 1-2 cartons per day] Second hand smoke exposure: Yes Alcohol intake: never Caregiver/support person: Yes Lives independently: Yes Household members: none Marital status: Single Current occupational status: disabled History of recent travel: No Current gender identity: Male Special suzie needs: No Agree to transfusion: Yes Physical Exam Const: COMMON NORMALS: no acute distress GENERAL APPEARANCE: cooperative and ill appearing (Mildly); not frail appearing HENMT: COMMON NORMALS: normocephalic, atraumatic and Normal external nose present HEAD & SCALP: normocephalic and atraumatic FACE & SINUS: normal facial exam and face symmetric NOSE: Normal external nose present Eye: COMMON NORMALS: Equal, round and reactive pupils present and EOMs intact bilaterally PUPIL: Yes Equal, round and reactive pupils present Neck/C-Spine: GENERAL: Yes trachea midline Chest: CHEST: Yes Symmetrical chest wall rise Resp: EFFORT & INSPECTION: Yes tachypneic and No respiratory distress AUSCULTATION: rhonchi and wheezes Cardio: COMMON NORMALS: regular rate and regular rhythm RATE: regular rate RHYTHM: regular rhythm GI: COMMON NORMALS: Normal to inspection, nondistended, normoactive bowel sounds present Extremity: COMMON NORMALS: no pedal edema Neuro: MARIA INES COMA SCALE: document GCS findings Maria Ines coma scale eye opening: Spontaneous Maria Ines coma scale verbal response: Orientated [place] coma scale motor response: Obey commands Maria Ines coma scale total score: 15 SENSORY EXAM: Yes extremities (intact) Psych: COMMON NORMALS: speech normal SPEECH: Yes normal speech Skin: COMMON NORMALS: no rashes or lesions noted GENERAL SKIN EXAM: no rashes or lesions noted Course Vital Signs: Vital signs: Vital Signs Temperature 99 F 08/25/22 03:10 Pulse Rate 96 08/25/22 03:10 Respiratory Rate 18 08/25/22 03:10 Blood Pressure 146/72 08/25/22 03:10 Pulse Oximetry 100 08/25/22 03:10 Oxygen Delivery Me thod 08/25/22 01:03 MDM - Fever Medical Decision Making This is a gentleman who had a right heart catheterization essentially 3 days ago. He complains of shortness of breath. He is wheezing on exam. He is given a DuoNeb treatment and Solu-Medrol with improvement in his symptoms. He is not using oxygen here. His white blood cell count is 11.7, hemoglobin 17.3. His BUN is 26, creatinine is up 2.2 which is above his baseline chest x-ray is negative for infiltrate. He is positive for influenza A by swab. Blood gas shows a pH of 741 with a PO2 of 65 on room air. He is feeling somewhat improved after breathing treatment and Solu-Medrol here. He is given a dose of Tamiflu and a prescription for Tamiflu. He is also given a Medrol Dosepak. He has nebulizer machine at home, and will use that for the next 48 hours he knows to return if worsening. Because of his recent cath, troponins were checked and did not elevated 2 hours. Lab Data 08/24/22 23:59 12 23:59 Radiology Impressions Chest X-Ray 08/25/22 00:35 IMPRESSION: Cardiomegaly, negative for infiltrate. Laboratory Results WBC 11.7 10^3/uL (4.0-10.0) H 08/24/22 23:59 RBC 5.42 10^6/uL (4.1-5.3) H 08/24/22 23:59 Hgb 17.3 g/dL (11.7-16.6) H 08/24/22 23:59 Hct 52.6 % (42.0-52.0) H 08/24/22 23:59 MCV 97.0 fl (80-94) H 08/24/22 23:59 MCH 31.9 pg (28.0-34.0) 08/24/22 23:59 MCHC 32.9 g/dL (30.0-36.0) 08/24/22 23:59 RDW 14.4 % (12.1-15.1) 08/24/22 23:59 Plt Count 205 10^3/cmm (130-400) 08/24/22 23:59 MPV 11.5 fL (7.4-10.4) H 08/24/22 23:59 Neut % (Auto) 74.8 % 08/24/22 23:59 Lymph % (Auto) 10.4 % 08/24/22 23:59 [place] % (Auto) 12.6 % 08/24/22 23:59 Eos % (Auto) 1.2 % 08/24/22 23:59 Baso % (Auto) 0.7 % 08/24/22 23:59 Neut # (Auto) 8.73 10^3/uL (1.8-7.7) H 08/24/22 23:59 Lymph # (Auto) 1.2 10^3/uL (0.8-4.8) 08/24/22 23:59 [place] # (Auto) 1.5 10^3/uL (0.2-0.9) H 08/24/22 23:59 Eos # (Auto) 0.1 10^3/uL (0.0-0.8) 08/24/22 23:59 Baso # (Auto) 0.1 10^3/uL (0.0-0.1) 08/24/22 23:59 Nucleated RBC % (auto) 0 % 08/24/22 23:59 Nucleated RBCs # 0.0 /100WBC 08/24/22 23:59 Specimen Type Arterial 08/25/22 01:05 Sample Site Radial, left 08/25/22 01:05 ABG pH 7.41 (7.35-7.45) 08/25/22 01:05 ABG pCO2 38.7 mmHg (35-45) 08/25/22 01:05 ABG pO2 65.7 mmHg (80.0-100.0) L 08/25/22 01:05 ABG HCO3 24.6 mmol/L (22-26) 08/25/22 01:05 ABG Base Excess 0.2 mmol/L (-2.0-2.0) 08/25/22 01:05 Saeid Test Pos 08/25/22 01:05 Hematocrit 51.8 % (42-52) 08/25/22 01:05 Hgb O2 Saturation 91.0 % (95-100) L 08/25/22 01:05 Carboxyhemoglobin 1.2 %THgb (0.4-20.1) 08/25/22 01:05 Methemoglobin 0.5 % (0.4-1.5) 08/25/22 01:05 Total Hemoglobin 16.9 g/dL (14-18) 08/25/22 01:05 O2 Delivery Device Room air 08/25/22 01:05 Welt Beater ID [id number] 08/25/22 01:05 Sodium 129 mmol/L (136-145) L 08/24/22 23:59 Potassium 4.3 mmol/L (3.5-5.1) 08/24/22 23:59 Chloride 91 mmol/L (98-107) L 08/24/22 23:59 Carbon Dioxide 30 mmol/L (22-29) H 08/24/22 23:59 Anion Gap 12.3 (5-19) 08/24/22 23:59 BUN 26 mg/dL (8-23) H 08/24/22 23:59 Creatinine 2.2 mg/dL (0.7-1.2) H 08/24/22 23:59 GFR Calculation 30.3 mL/min (90-130) L 08/24/22 23:59 Glucose 94 mg/dL (65-115) 08/24/22 23:59 Calculated Osmolality 273 mOsm/kg (285-295) L 08/24/22 23:59 Calcium 10.6 mg/dL (8.5-10.5) H 08/24/22 23:59 Total Bilirubin 0.5 mg/dL (0.15-1.2) 08/24/22 23:59 AST 28 U/L (0-40) 08/24/22 23:59 ALT 17 U/L (0-41) 08/24/22 23:59 Alkaline Phosphatase 61 U/L (40-130) 08/24/22 23:59 Troponin T Baseline 37 ng/L (0-15) H 08/24/22 23:59 Troponin T 120 Minute 32.17 ng/L (0-15) H 08/25/22 02:12 Delta Troponin T -4.83 ABS# (0-10) L 08/25/22 02:12 NT-Pro-B Natriuret Pep 1212 pg/mL (0-125) H 08/24/22 23:59 Total Protein 8.4 g/dL (6.6-8.7) 08/24/22 23:59 Albumin 4.5 g/dL (3.5-5.2) 08/24/22 23:59 Globulin 3.9 g/dL (1.3-4.6) 08/24/22 23:59 Influenza Type A Ag positive (Negative) H 08/25/22 00:41 Influenza Type B Ag negative (Negative) 08/25/22 00:41 SARS-CoV-2 Ag (Rapid) negative (Negative) 08/25/22 00:41 Discharge Plan Discharge Patient Disposition: Home Clinical Impression: Influenza A Condition: Stable Prescriptions: New Medrol ([place]) 4 mg tablets,dose pack See Rx Instructions .ROUTE .COMPLEX Qty: 21 0RF Rx Instructions: orally per package directions Tamiflu 75 mg capsule 75 mg PO BID 5 Days Qty: 10 0RF No Action naproxen 500 mg tablet 500 mg PO BID PRN (Reason: pain) Qty: 60 5RF fenofibrate 160 mg tablet 160 mg PO DAILY Qty: 30 5RF atorvastatin 80 mg tablet 80 mg PO DAILY Qty: 30 5RF aspirin [Adult Low Dose Aspirin] 81 mg tablet,delayed release (DR/EC) 81 mg PO BID Anoro Ellipta 62.5-25 mcg/actuation blister with device 1 inh inhalation DAILY Qty: 60 3RF ipratropium-albuterol 0.5 mg-3 mg(2.5 mg base)/3 mL solution for nebulization 3 ml inhalation BID Qty: 180 3RF isosorbide mononitrate 60 mg tablet extended release 24 hr 60 mg PO BID Qty: 180 3RF ergocalciferol (vitamin D2) 1,250 mcg (50,000 unit) capsule 1,250 mcg PO .WEEKLY Qty: 4 5RF gabapentin 300 mg capsule See Rx Instructions .ROUTE .COMPLEX Qty: 90 2RF Dose Instruction: TAKE 1 CAPSULE BY MOUTH THREE TIMES DAILY Rx Instructions: TAKE 1 CAPSULE BY MOUTH THREE TIMES DAILY trazodone 100 mg tablet 100 mg PO DAILY Qty: 30 2RF celecoxib 200 mg capsule 200 mg PO BID PRN (Reason: pain) Qty: 60 0RF tramadol 50 mg tablet 50 mg PO TID PRN (Reason: pain) Qty: 21 0RF ibuprofen 800 mg tablet See Rx Instructions .ROUTE .COMPLEX Qty: 60 3RF Dose Instruction: TAKE 1 TABLET BY MOUTH TWICE DAILY NEEDED FOR PAIN *DO NOT TAKE WITH NAPROXEN OR OTHER NSAIDS* Rx Instructions: TAKE 1 TABLET BY MOUTH TWICE DAILY NEEDED FOR PAIN *DO NOT TAKE WITH NAPROXEN OR OTHER NSAIDS* albuterol sulfate [ProAir HFA] 90 mcg/actuation HFA aerosol inhaler 2 puff INHALATION QID PRN (Reason: shortness of breath or wheezing) Qty: 18 5RF ranolazine [Ranexa] 500 mg tablet extended release 12 hr 500 mg PO BID Qty: 60 6RF metoprolol tartrate 100 mg tablet See Rx Instructions .ROUTE .COMPLEX Qty: 60 0RF Dose Instruction: Take 1 tablet by mouth twice daily Rx Instructions: Take 1 tablet by mouth twice daily nitroglycerin 0.4 mg tablet, sublingual See Rx Instructions .ROUTE .COMPLEX Qty: 25 3RF Dose Instruction: DISSOLVE ONE TABLET UNDER THE TONGUE EVERY 5 MINUTES NEEDED FOR CHEST PAIN. DO NOT EXCEED A TOTAL OF 3 DOSES IN 15 MINUTES Rx Instructions: DISSOLVE ONE TABLET UNDER THE TONGUE EVERY 5 MINUTES NEEDED FOR CHEST PAIN. DO NOT EXCEED A TOTAL OF 3 DOSES IN 15 MINUTES amlodipine 5 mg Tablet 5 mg PO DAILY Qty: 30 3RF methocarbamol 750 mg tablet 750 mg PO Q8H PRN (Reason: Muscle spasms and pain) Qty: 30 0RF Discharge Orders: Discharge ED (Routine); Ordered 08/25/22 Ordered By: Arie Bryant Referrals: Daphne Flower FNP [Primary Care Provider] - 1-3 days Patient Instructions: Influenza (ED) Activity Restrictions/Additional Instructions: Use your nebulizer machine every 4 hours while awake for the next 48 hours, then as needed following. Other medications as directed. Return for worsening shortness of breath despite treatment, chest discomfort, inability to control fever, any other concerning symptoms. Make sure you stay hydrated, particularly for the next 48 hours. Coding Level of Care Code ED [employer]phol[employer]rer for Jordan Griggs
--- NOTE | 2022-08-25 03:25 | ECG_ITS ---
[facility] Test Date: 2022-08-25 Pat Name: Steve Gandara Department: Room: Gender: Male Log Skidder: : 1955 Requested By: Arie Cedillo Order Number: [id number] Felipe MD: Sami Tejada M.D. Measurements Intervals [place] Rate: 74 P: 26 UT: 157 QRS: 84 QRSD: 105 T: 198 QT: 361 QTc: 401 Interpretive Statements SINUS RHYTHM NONSPECIFIC ST & T-WAVE ABNORMALITY Compared to ECG 06/19/2022 03:58:37 Possible ischemia no longer present T-wave abnormality still present Electronically Signed On 08-25-2022 19:06:00 TIRE BALANCER by Sami Tejada M.D. [id number]
== END 2022-08-25 03:11 | disposition home or self-care (01) ==
PROVIDERS: Emergency Provider Emergency Medicine; PCP Nurse Practitioner Family
DX: J10.1 Influenza due to other identified influenza virus with other respiratory manifestations (principal); Z79.82 Long term (current) use of aspirin; Z20.822 Contact with and (suspected) exposure to COVID-19; I11.0 Hypertensive heart disease with heart failure; I50.9 Heart failure, unspecified; E78.5 Hyperlipidemia, unspecified; Z95.1 Presence of aortocoronary bypass graft; F17.210 Nicotine dependence, cigarettes, uncomplicated
CPT/HCPCS: 36600; 71045; 80053; 82805; 83880; 84484; 85025; 87426; 87804; 93005; 94640; 96374; 99285; J2930

== ENCOUNTER 2022-09-29 10:00 | Day surgery (SDC) | payer MEDICAID, SELFPAY ==
[2022-09-24 09:41] VITALS: BMI 32.9
--- NOTE | 2022-09-24 10:15 | P.ANESASSM_ITS ---
Pre-Anesthetic Assessment Height/Weight: Height 1.57 m Weight 81.647 kg Preop Diagnosis: Chest pain, abnormal stress tset Operation Date: 09/29/22 13:25 Proposed Procedures p Open Spine Decompression L3/4 L4/5 L5/S1 86627/90306X0/M48.062(Not Applicable) - Adal Marsh DO Familial anesthetic complications: none Was Beta Estela taken within 24 hours: Yes Was Clonidine taken within 24 hours: N/A Social Tobacco and No alcohol Exam alert, oriented x 3 and regular rate & rhythm Airway Submandibular: within normal limits Cervical ROM: within normal limits Mallampati: Class II Dentition: chipped and loose Comments: Comments: poor dentition, some loose Pulmonary Chronic Obstructive Pulmonary Disease and Sleep Apnea CV/HEM Coronary Artery Disease (CABG), Congestive Heart Failure and Hypertension CONCLUSIONS ?1. Normal left ventricular size and systolic function. Left ?ventricular ejection fraction is estimated at 55 %. There seems ?to be hypokinesis of basal to mid inferior sofia. Grade II ?diastolic dysfunction, moderately elevated filling pressures. ?2. When compared to previous study dated 07/13/2019, there may ?not have been any significant change. ?Em Arauz MD ?(Electronically Signed) ?Final Date:? ? ? 25 August 2022 Chronic Renal Insufficiency CR 2.2 Metabolic Hyperlipidemia and Morbid Obesity [facility] Lower Back Pain and Osteoarthritis/DJD Neuropsych Neuropathy Medications/Allergies Home Medications Medication Instructions Recorded Confirmed Last Taken Type aspirin 81 mg tablet,delayed 81 mg PO BID 05/29/21 09/24/22 09/24/22 History release (Adult Low Dose Aspirin) naproxen 500 mg tablet 500 mg PO BID PRN pain #60 tabs 08/05/21 09/24/22 Unknown Rx isosorbide mononitrate 60 mg 60 mg PO BID #180 tabs 04/23/22 09/24/22 09/24/22 Rx tablet,extended release 24 hr ergocalciferol (vitamin D2) 1,250 1,250 mcg PO .WEEKLY #4 caps 05/08/22 09/24/22 09/23/22 Rx mcg (50,000 unit) capsule umeclidinium 62.5 mcg-vilanterol 1 inh inhalation DAILY #60 ea 06/09/22 09/24/22 09/24/22 Rx 25 mcg/actuation powdr for inhalation (Anoro Ellipta) methocarbamol 750 mg tablet 750 mg PO Q8H PRN Muscle spasms 06/10/22 09/24/22 Unknown Rx and pain #30 tabs celecoxib 200 mg capsule 200 mg PO BID PRN pain #60 caps 06/17/22 09/24/22 Unknown Rx tramadol 50 mg tablet 50 mg PO TID PRN pain #21 tabs 06/17/22 09/24/22 Unknown Rx albuterol sulfate 90 mcg/actuation 2 puff inhalation QID PRN 06/18/22 09/24/22 08/20/22 04:30 Rx aerosol inhaler (ProAir HFA) shortness of breath or wheezing #18 grams ipratropium 0.5 mg-albuterol 3 mg 3 ml inhalation BID #180 mL 06/18/22 09/24/22 09/24/22 Rx (2.5 mg base)/3 mL nebulization soln ranolazine 500 mg tablet,extended 500 mg PO BID #60 tabs 07/07/22 09/24/22 09/24/22 Rx release,12 hr (Ranexa) amlodipine 5 mg tablet 5 mg PO DAILY #30 tabs 08/21/22 09/24/22 09/24/22 Rx atorvastatin 80 mg tablet 80 mg PO DAILY 09/24/22 09/24/22 09/24/22 History fenofibrate 160 mg tablet 160 mg PO BEDTIME 09/24/22 09/24/22 09/23/22 History gabapentin 300 mg capsule 300 mg PO TID 09/24/22 09/24/22 09/24/22 History ibuprofen 800 mg tablet 800 mg PO BID PRN Pain 09/24/22 09/24/22 Unknown History metoprolol tartrate 100 mg tablet 100 mg PO BID 09/24/22 09/24/22 09/24/22 History nitroglycerin 0.4 mg sublingual 0.4 mg sublingual 6XD PRN Chest 09/24/22 09/24/22 Unknown History tablet Pain trazodone 100 mg tablet 100 mg PO BEDTIME 09/24/22 09/24/22 09/23/22 History Allergies Allergy/AdvReac Type Severity Reaction Status Date / Time codeine Allergy Mild itching Verified 09/24/22 09:40 [facility] Anesthesia Medical History CHF (congestive heart failure), NYHA class II Essential (primary) hypertension Hyperlipidemia, unspecified Lung nodule Spondylosis without myelopathy or radiculopathy, lumbosacral region Surgical History History of PTCA Hx of CABG Hx of vasectomy Family History Father Stroke Cancer Mother CAD (coronary artery disease) Diabetes Brother CAD (coronary artery disease) Hypertension Social History Smoking and tobacco status: current every day smoker cigarettes Packs smoked per day: 1 Years cigarettes smoked: 40 [ Other cigarette details: 1-2 cartons per day] Second hand smoke exposure: Yes Alcohol intake: never Caregiver/support person: Yes Lives independently: Yes Household members: none Marital status: Single Current occupational status: disabled History of recent travel: No Current gender identity: Male Special suzie needs: No Agree to transfusion: Yes Data Anesthesia Cardiac Studies: Echocardiogram 08/20/22 Sestamibi Stress Test (Cardiology) 06/27
[2022-09-29] VITALS (10 sets, daily range): BP systolic 118–170; BP diastolic 55–94; PULSE 61–79; RESP 16–20; TEMP 36.3–36.6; O2SAT 91–99
--- NOTE | 2022-09-29 | XR_ITS ---
WS: [id number] XR lumbar spine 1V [id number] REASON FOR EXAM: lumbar decompression L3-4, L4-5, L5-S1 FINDINGS: Surgical probe overlies the mid L4-L5 disc space.. XR/XR lumbar spine 1V 22833 IMPRESSION: Lumbar spine localization in surgery as above.
[2022-09-29] MEDS: sodium chloride 0.9% 1,000 ML 30 ML IV (10:21)
--- NOTE | 2022-09-29 10:35 | ANES.PAUD2 ---
Pre-Anesthetic Update Pre-Anesthetic Assessment: Date of Surgery/Procedure: 09/29/22 Preop Diagnosis: Lumbar stenosis with neurogenic claudication Proposed Procedure: Operation Date: 09/29/22 13:25 Proposed Procedures p Open Spine Decompression L3/4 L4/5 L5/S1 27967/[id number]/M48.062(Not Applicable) - Adal Marsh, DO Any changes to Pre-Anesthetic Assessment?: No Last Intake: Intake Last Liquid Date 09/28/22 Last Liquid Time 22:00 Last Solid Date 09/28/22 Last Solid Time 22:00 Vitals: Temperature 97.4 F L 09/29/22 10:02 Temperature Source Temporal Artery S can 09/29/22 10:02 Pulse Rate 61 09/29/22 10:02 Respiratory Rate 16 09/29/22 10:02 Blood Pressure 170/87 09/29/22 10:02 Blood Pressure Liv n 114 09/29/22 10:02 Pulse Oximetry 97 09/29/22 10:02 Oxygen Delivery Me thod 09/29/22 10:16 Exam: Pre-Anes Outpt Exam: alert, oriented x 3, clear to auscultation bilaterally and regular rate & rhythm Cardiac Studies: Echocardiogram 08/20/22 Sestamibi Stress Test (Cardiology) 06/27/22
--- NOTE | 2022-09-29 10:42 | PM.HP ---
Providers/Chief Complaint Primary Care Provider: AMY Bueno Chief Complaint: OPEN LUMBAR DECOMPRESSION [id number] History of Present Illness Steve Gandara is a 66 year old male ower back pain with radiating pain down both legs, worse on left. Patient rates pain at 8/10 in clinic today. Patient states he did have fall on 07/07/22 to foot through a floor.? Reports having increased low back and bilateral leg pain with inability to walk distances because of his leg pain.? patient does have MRI in chart to review as well.? Pain has been sharp stabbing in the low back with a dull ache burning down his legs.? He can only walk 3040 feet before he has to sit down because of his pain in the legs. Onset: Acute Duration: 1 month Characteristics: dull ache with burning Severity: 8 Location: lower back Radiating symptoms: bilateral legs Aggravating factors: walking long distances Alleviating factors: sitting Neuro deficits: numbness, tingling, weakness that was present prior to fall Prior tx: previous injections to spine with no relief Review of Systems Const: Reports: fever(s) and body aches ENMT: Reports: throat pain and nasal congestion Card: Denies: chest pain Resp: Reports: dyspnea and non-productive cough GI: Reports: nausea and vomiting; Denies: abdominal pain or diarrhea Neuro: Reports: headache(s); Denies: confusion Medications/Allergies Home Medications Medication Instructions Recorded Confirmed Last Taken Type aspirin 81 mg tablet,delayed 81 mg PO BID 05/29/21 09/24/22 09/26/22 History release (Adult Low Dose Aspirin) naproxen 500 mg tablet 500 mg PO BID PRN pain #60 tabs 08/05/21 09/24/22 Unknown Rx isosorbide mononitrate 60 mg 60 mg PO BID #180 tabs 04/23/22 09/24/22 09/28/22 Rx tablet,extended release 24 hr ergocalciferol (vitamin D2) 1,250 1,250 mcg PO .WEEKLY #4 caps 05/08/22 09/24/22 09/23/22 Rx mcg (50,000 unit) capsule umeclidinium 62.5 mcg-vilanterol 1 inh inhalation DAILY #60 ea 06/09/22 09/24/22 09/27/22 Rx 25 mcg/actuation powdr for inhalation (Anoro Ellipta) methocarbamol 750 mg tablet 750 mg PO Q8H PRN Muscle spasms 06/10/22 09/29/22 09/27/22 Rx and pain #30 tabs celecoxib 200 mg capsule 200 mg PO BID PRN pain #60 caps 06/17/22 09/29/22 09/27/22 Rx tramadol 50 mg tablet 50 mg PO TID PRN pain #21 tabs 06/17/22 09/29/22 09/27/22 Rx albuterol sulfate 90 mcg/actuation 2 puff inhalation QID PRN 06/18/22 09/29/22 09/27/22 Rx aerosol inhaler (ProAir HFA) shortness of breath or wheezing #18 grams ipratropium 0.5 mg-albuterol 3 mg 3 ml inhalation BID #180 mL 06/18/22 09/24/22 09/26/22 Rx (2.5 mg base)/3 mL nebulization soln ranolazine 500 mg tablet,extended 500 mg PO BID #60 tabs 07/07/22 09/24/22 09/27/22 Rx release,12 hr (Ranexa) amlodipine 5 mg tablet 5 mg PO DAILY #30 tabs 08/21/22 09/24/22 09/28/22 Rx atorvastatin 80 mg tablet 80 mg PO DAILY 09/24/22 09/24/22 09/27/22 History fenofibrate 160 mg tablet 160 mg PO BEDTIME 09/24/22 09/24/22 09/27/22 History gabapentin 300 mg capsule 300 mg PO TID 09/24/22 09/24/22 09/27/22 History ibuprofen 800 mg tablet 800 mg PO BID PRN Pain 09/24/22 09/24/22 Unknown History metoprolol tartrate 100 mg tablet 100 mg PO BID 09/24/22 09/24/22 09/27/22 History nitroglycerin 0.4 mg sublingual 0.4 mg sublingual 6XD PRN Chest 09/24/22 09/24/22 Unknown History tablet Pain Allergies Allergy/AdvReac Type Severity Reaction Status Date / Time codeine Allergy Mild itching Verified 09/29/22 10:07 PFSH Acute PFSH: Medical History CHF (congestive heart failure), NYHA class II Essential (primary) hypertension Hyperlipidemia, unspecified Lung nodule Spondylosis without myelopathy or radiculopathy, lumbosacral region Surgical History History of PTCA Hx of CABG Hx of vasectomy Family History Father Stroke Cancer Mother CAD (coronary artery disease) Diabetes Brother CAD (coronary artery disease) Hypertension Social History Smoking and tobacco status: current every day smoker cigarettes Packs smoked per day: 1 Years cigarettes smoked: 40 [ Other cigarette details: 1-2 cartons per day] Second hand smoke exposure: Yes Alcohol intake: never Caregiver/support person: Yes Lives independently: Yes Household members: none Marital status: Single Current occupational status: disabled History of recent travel: No Current gender identity: Male Special suzie needs: No Agree to transfusion: Yes Vitals/I&O/Wt Last Vital Signs Temp 97.4 F L 09/29/22 10:02 Pulse 61 09/29/22 10:02 Resp 16 09/29/22 10:02 BP 170/87 09/29/22 10:02 Pulse Ox 97 09/29/22 10:02 O2 Del Method 09/29/22 10:16 Physical Exam Narrative: GENERAL: Obese man laying comfortably in bed in no acute distress HEENT: Extraocular movement intact. ? No pallor or icterus. NECK: central trachea, no JVD,? No carotid bruit. CARDIOVASCULAR SYSTEM: S1-S2 regular.? No murmur rubs or gallops. RESPIRATORY SYSTEM: Chest clear to auscultation.? No wheezes rhonchi or rubs heard. No use of accessory muscles. ABDOMEN: Soft, nontender and nondistended.? Normal bowel sounds present.? EXTREMITIES: No cyanosis or edema.? No signs of chronic venous insufficiency. Right groin with no significant bruising or hematoma ARTIFICIAL BREEDING DISTRIBUTOR: Patient is alert oriented ?3.? No focal neurological deficits.? SKIN: Normal turgor and temperature.? PSYCH: Normal insight and judgment.? A&P Assessment and plan (1) Spinal stenosis, lumbar region, with neurogenic claudication: L3-S1 Decompression Attestations Medical Necessity Statement*: failed conservative tx Coding Level of Care Code Acute Lcac Radar Operator/Navigator for Chg Fwd Diagnoses Spinal stenosis, lumbar region, with neurogenic claudication M48.062
[2022-09-29] MEDS: ceFAZolin 2,000 MG in sodium chloride 0.9% (plus) 50 ML 100 MG IV (11:33)
--- NOTE | 2022-09-29 12:08 | SUR.OPER ---
10ML 1% LIDOCAINE WITH EPI WAS INJECTED IN THE BACK.
[2022-09-29] MEDS: vancomycin 1,000 MG SDV 1000 MG XX (12:50)
--- NOTE | 2022-09-29 13:14 | P.OP_ITS ---
Operative Report Date of procedure: September 29, 2022 Pre-op diagnosis: Preop Diagnosis Lumbar stenosis with neurogenic claudication Post-op diagnosis: same Procedure done: 1. L3/4 Laminectomy with partial facetectomy 2. L4/5 Laminectomy with partial facetectomy 3. L5/S1 Laminectomy with partial facetectomy Surgeon: Adal Marsh Threshing Machine Operator: Troy Santacruz Threshing Machine Operator: The surgical training specialist, Troy Santacruz, PAC was needed for his expertise under the microscope. He was important and necessary throughout the procedure to complete in a safe and timely manner. He assisted with patient positioning prepping and draping tissue retraction suctioning of the operative field protection of the dural sac and tissue closure Estimated blood loss (mL): 25 Procedure: 1. L3/4 Laminectomy with partial facetectomy 2. L4/5 Laminectomy with partial facetectomy 3. L5/S1 Laminectomy with partial facetectomy Patient brought the OR suite after undergoing anesthesia was placed in the prone position. All areas impingement well-padded. Patient was prepped and draped normal sterile fashion. Skin incision was made from L3 down to S1. This is confirmed under C-arm guidance. Thoracolumbar fascia was identified. Subperiosteal dissection was made out to the L3-4 L4-5 and L5-S1 facets bilaterally. Retractors were placed. Attention was first brought to the L3-4 level. Rongeur was used to take down the spinous process. Lamina was taken down with a high-speed bur curved curettes and Kerrison rongeur. Next the medial aspect of the facet joint was taken down from the high-speed bur curved curettes and Kerrison rongeur. This was done bilaterally. Ligamentum flavum was taken down from L3-L4. The foramen was palpated and found to be wide open bilaterally. This was done with a Randall. In the nerve passed from the pedicle bilaterally felt to be adequately decompressed. Next attention was brought to the L4/5 level. Rongeur was used to take down the spinous process. Lamina was taken down with a high-speed bur curved curettes and Kerrison rongeur. Next the medial aspect of the facet joint was taken down from the high-speed bur curved curettes and Kerrison rongeur. This was done bilaterally. Ligamentum flavum was taken down from L4/5. The foramen was palpated and found to be wide open bilaterally. This was done with a Frida. In the nerve passed from the pedicle bilaterally felt to be adequately decompressed. Next attention was brought to the L5/S1 level. Rongeur was used to take down the spinous process. Lamina was taken down with a high-speed bur curved curettes and Kerrison rongeur. Next the medial aspect of the facet joint was taken down from the high-speed bur curved curettes and Kerrison rongeur. This was done bilaterally. Ligamentum flavum was taken down from L5/S1. The foramen was palpated and found to be wide open bilaterally. This was done with a Frida. In the nerve passed from the pedicle bilaterally felt to be adequately decompressed. Dura was in good repair and was completely exposed. I did place. Wound was then irrigated with saline and closed in layered fashion with 0 Vicryl 2-0 Vicryl and Monocryl suture. Sterile dressings were applied patient was transferred to the PACU in stable condition.
[2022-09-29] MEDS: HYDROcodone-acetaminophen 5-325 mg Tablet 2 TAB PO (14:17)
--- NOTE | 2022-09-29 16:30 | ANE.PACU2 ---
Inpatient post-anesthesia follow up: Airway intact: Yes Vital signs: Temperature 97.9 F Pulse Rate 63 Respiratory Rate 18 Blood Pressure 153/78 Pulse Oximetry 92 Oxygen Delivery Me thod Room Air Oxygen Flow Rate 2 Fraction of Inspir ed Oxygen Hydration adequate: Yes Nausea and vomiting: No Pain level: 1 Mental status: Baseline
== END 2022-09-29 14:55 | disposition home or self-care (01) ==
PROVIDERS: PCP Nurse Practitioner Family; Visit Provider Orthopaedic Surgery
PROC: (CPT 63001; principal; 2022-09-29 13:15)
DX: M48.062 Spinal stenosis, lumbar region with neurogenic claudication (principal); J44.9 Chronic obstructive pulmonary disease, unspecified; I25.10 Atherosclerotic heart disease of native coronary artery without angina pectoris; Z95.1 Presence of aortocoronary bypass graft; I11.0 Hypertensive heart disease with heart failure; I50.9 Heart failure, unspecified; G47.30 Sleep apnea, unspecified; E78.5 Hyperlipidemia, unspecified; E66.01 Morbid (severe) obesity due to excess calories; Z68.32 Body mass index [BMI] 32.0-32.9, adult; Z79.82 Long term (current) use of aspirin; F17.210 Nicotine dependence, cigarettes, uncomplicated
CPT/HCPCS: 63047; 63048 ×2; 51702; 72020; 76000; J0131; J0690; J1100; J1170; J2370; J2405; J2704; J2710; J3010; J3370; J3490; J7030

== ENCOUNTER 2022-09-29 20:37 | Emergency (ER) | payer MEDICAID, SELFPAY ==
[2022-09-29 20:39] VITALS: BP 128/73; PULSE 58; RESP 18; TEMP 36.5; O2SAT 93; BMI 32.9
--- NOTE | 2022-09-29 21:31 | ED_ITS ---
HPI - Wound/Laceration General: Chief Complaint: General Medical Stated Complaint: back surgery incission bleeding Time Seen by Provider: 09/29/22 21:01 Source: patient and family Mode of arrival: ambulatory Limitations: no limitations History of Present Illness: Patient is a very nice 66-year-old male who presents to ED today along with his significant other for concerns of bleeding to a back surgical site. Patient underwent 1. L3/4 Laminectomy with partial facetectomy 2.? L4/5 Laminectomy with partial facetectomy 3.? L5/S1 Laminectomy with partial facetectomy By Dr. Marsh earlier today. He was discharged home. states as patient was getting up to use the restroom she noticed a blood soaked bandage to the back thus prompting their ED visit. Patient and have no other concerns other than the soaked bandage. Onset (ago): hour(s) Location: back Place: home Patient tetanus UTD: Yes Associated symptoms: Reports no associated symptoms; Denies chills or fever(s) Treatments prior to arrival: bandage Review of Systems Const: Denies: fever(s), chills, body aches, fatigue or malaise Card: Denies: chest pain Resp: Denies: dyspnea Musc: Reports: back pain (recent surgery) Skin/Breast: Reports: other (back incision) Neuro: Denies: numbness in extremities, sensory changes or difficulty walking [facility] ED PFSH: Medical History CHF (congestive heart failure), NYHA class II Essential (primary) hypertension Hyperlipidemia, unspecified Lung nodule Spondylosis without myelopathy or radiculopathy, lumbosacral region Surgical History History of PTCA Hx of CABG Hx of vasectomy Family History Father Stroke Cancer Mother CAD (coronary artery disease) Diabetes Brother CAD (coronary artery disease) Hypertension Social History Smoking and tobacco status: current every day smoker cigarettes Packs smoked per day: 1 Years cigarettes smoked: 40 [ Other cigarette details: 1-2 cartons per day] Second hand smoke exposure: Yes Alcohol intake: never Caregiver/support person: Yes Lives independently: Yes Household members: none Marital status: Single Current occupational status: disabled History of recent travel: No Current gender identity: Male Special suzie needs: No Agree to transfusion: Yes Physical Exam Const: COMMON NORMALS: no acute distress, patient oriented x3, no limitations and alert NUTRITIONAL APPEARANCE: overweight ORIENTATION/CONSCIOUSNESS: Yes awake, Yes oriented to person, Yes oriented to place and Yes oriented to time Resp: COMMON NORMALS: normal respiratory effort and clear to auscultation bilaterally AUSCULTATION: clear to auscultation bilaterally Cardio: COMMON NORMALS: regular rate and regular rhythm RATE: regular rate RHYTHM: regular rhythm Back/Pelvis: LUMBAR SPINE/LOWER BACK: Yes other soft tissue findings (blood soaked steri-strips and surgical bandage; no active bleeding) OTHER: palpation/ROM testing not performed due to recent surgery and lack of need for stated complaint Neuro: COMMON NORMALS: patient oriented x3 SENSORIUM/ORIENTATION: Yes alert, Yes oriented to person, Yes oriented to place and Yes oriented to time Course Vital Signs: Vital signs: Vital Signs Temperature 97.7 F 09/29/22 20:39 Pulse Rate 58 L 09/29/22 20:39 Respiratory Rate 18 09/29/22 20:39 Blood Pressure 128/73 09/29/22 20:39 Pulse Oximetry 93 09/29/22 20:39 Oxygen Delivery Me thod 09/29/22 20:39 MDM - Wound/Laceration Medical Decision Making Patient here with bleeding from his lumbar back surgical site. Wound was examined thoroughly and there is no active bleeding present. Wound was re- dressed and recommend he contact Dr. Marsh's office tomorrow for further instructions. I will also place information with case management to help get him seen in the next 1 to 2 days for reevaluation. Strict return to ED precautions given. Discharge Plan Discharge Patient Disposition: Home Clinical Impression: Postoperative bleeding from incision Condition: Stable Prescriptions: No Action naproxen 500 mg tablet 500 mg PO BID PRN (Reason: pain) Qty: 60 5RF aspirin [Adult Low Dose Aspirin] 81 mg tablet,delayed release (DR/EC) 81 mg PO BID Anoro Ellipta 62.5-25 mcg/actuation blister with device 1 inh inhalation DAILY Qty: 60 3RF ipratropium-albuterol 0.5 mg-3 mg(2.5 mg base)/3 mL solution for nebulization 3 ml inhalation BID Qty: 180 3RF isosorbide mononitrate 60 mg tablet extended release 24 hr 60 mg PO BID Qty: 180 3RF ergocalciferol (vitamin D2) 1,250 mcg (50,000 unit) capsule 1,250 mcg PO .WEEKLY Qty: 4 5RF celecoxib 200 mg capsule 200 mg PO BID PRN (Reason: pain) Qty: 60 0RF tramadol 50 mg tablet 50 mg PO TID PRN (Reason: pain) Qty: 21 0RF albuterol sulfate [ProAir HFA] 90 mcg/actuation HFA aerosol inhaler 2 puff INHALATION QID PRN (Reason: shortness of breath or wheezing) Qty: 18 5RF ranolazine [Ranexa] 500 mg tablet extended release 12 hr 500 mg PO BID Qty: 60 6RF amlodipine 5 mg Tablet 5 mg PO DAILY Qty: 30 3RF atorvastatin 80 mg tablet 80 mg PO DAILY ibuprofen 800 mg tablet 800 mg PO BID PRN (Reason: Pain) metoprolol tartrate 100 mg tablet 100 mg PO BID nitroglycerin 0.4 mg tablet, sublingual 0.4 mg sublingual 6XD PRN (Reason: Chest Pain) gabapentin 300 mg capsule 300 mg PO TID fenofibrate 160 mg tablet 160 mg PO BEDTIME hydrocodone-acetaminophen 5-325 mg tablet 1 - 2 tab PO .Q4-6H Qty: 40 0RF methocarbamol 750 mg tablet 750 mg PO Q8H PRN (Reason: Muscle spasms and pain) Qty: 30 0RF Discharge Orders: Discharge ED (Routine); Ordered 09/29/22 Ordered By: Olive Lama Referrals: Daphne Flower FNP [Primary Care Provider] - Activity Restrictions/Additional Instructions: As we discussed please contact Dr. Marsh's office tomorrow for further instructions. I have also placed information with case management so they can work on getting you a follow-up appointment in the next 24 to 48 hours. Wound was re-dressed here. There may continue to be some mild bleeding/oozing from surgical site. Need to return to the emergency department for significant bleeding. Coding Level of Care Code ED Customer Operations Manager for Jordan Griggs
--- NOTE | 2022-09-29 21:51 | PC.NURSE ---
dressing was changed with silverlon 9 in bandage from surgery. pt was also sent home with an extra.
--- NOTE | 2022-09-30 09:02 | DCPLANNER ---
Addendum entered by Felecia Hollingsworth 10/24/22 13:31: Patient had a follow up appointment scheduled with ortho - patient did attend appointment. Addendum entered by Felecia Hollingsworth 09/30/22 11:13: warehouse delivery manager received the following message from the ortho clinic regarding follow up appointment: Dr. Grant nurse Raoulblake spoke to patient on the phone, he is doing ok and will just keep his post op appt on 10/14 at 10am. If he contacts our office with more drainage/issues then she said we will get him in sooner but as of now he is ok. Patient has a follow up appointment scheduled for Friday, October 14, 2022 at 10:[address] Marsh at ortho. Original Note: warehouse delivery manager had message to schedule a follow up appointment for patient with ortho. warehouse delivery manager sent patients information to the front office staff at ortho. Patients information will be printed and reviewed. Clinic will call patient with appointment information.
== END 2022-09-29 21:49 | disposition home or self-care (01) ==
PROVIDERS: Emergency Provider Physician Assistant; PCP Nurse Practitioner Family
DX: L76.22 Postprocedural hemorrhage of skin and subcutaneous tissue following other procedure (principal); Z79.82 Long term (current) use of aspirin; I11.0 Hypertensive heart disease with heart failure; I50.9 Heart failure, unspecified; E78.5 Hyperlipidemia, unspecified; Z95.1 Presence of aortocoronary bypass graft; F17.210 Nicotine dependence, cigarettes, uncomplicated
CPT/HCPCS: 99282

== ENCOUNTER → 2022-10-14 09:41 | Outpatient (BNVA) | payer MEDICAID, SELFPAY | PROVIDERS: PCP Nurse Practitioner Family; Visit Provider Orthopaedic Surgery | DX: Z47.89 Encounter for other orthopedic aftercare (principal) | CPT/HCPCS: 99024 ==

== ENCOUNTER → 2022-10-30 13:46 | Outpatient (BNVA) | payer MEDICAID, SELFPAY | PROVIDERS: PCP Nurse Practitioner Family; Visit Provider Nurse Practitioner Family | DX: R79.89 Other specified abnormal findings of blood chemistry (principal); E78.5 Hyperlipidemia, unspecified; E55.9 Vitamin D deficiency, unspecified; I10 Essential (primary) hypertension; R73.03 Prediabetes | CPT/HCPCS: 80053; 80061; 82306; 83036; 84439; 84443; 84481; 85025 ==

== ENCOUNTER → 2022-11-11 09:33 | Outpatient (BNVA) | payer MEDICAID, SELFPAY | PROVIDERS: PCP Nurse Practitioner Family; Visit Provider Orthopaedic Surgery | DX: Z47.89 Encounter for other orthopedic aftercare (principal) | CPT/HCPCS: 99024; 99213 ==

== ENCOUNTER 2022-11-18 06:26 | Outpatient (CLI) | payer MEDICAID, SELFPAY ==
--- NOTE | 2022-11-18 07:00 | CT_ITS ---
WS: [id number] CT CHEST WITHOUT INTRAVENOUS CONTRAST HISTORY: 6 month f/u lung nodule TECHNIQUE: Contiguous 5 mm axial imaging performed on the thorax. Coronal and sagittal reformats are submitted. All CT scans at [facility] use at least one of these dose optimization techniques: automated exposure control; mA and/or kV adjustment per patient size (includes targeted exams where dose is matched to clinical indication); or iterative reconstruction. CONTRAST: None DLP: 416.16 mGy.cm COMPARISON: 02/18/2022 and 01/24/2015 Lungs and central airway: Mild pulmonary hyperinflation. Chronic fibrosis or scarring RIGHT lower lob e. Adjacent to the scarring is a 5 mm nodule which is unchanged in size since 02/18/2022. There are no new or increasing pulmonary nodules or masses. There is an additional medial RIGHT upper lobe asymme try/groundglass attenuation which is stable. Pleura: Normal. No pleural effusion. Heart and pericardium: Prior CABG. Heart is slightly enlarged. No pericardial effusion. Mediastinum and arben: No mediastinum or hilar adenopathy. Vessels: Mild atherosclerosis aorta. Normal size pulmonary artery. Severe coronary artery atheroscler osis. Chest wall and lower neck: No soft tissue masses. Upper abdomen: Cholelithiasis without acute cholecystitis. Nonobstructing calcification upper pole LE FT kidney. No adrenal mass. Osseous structures: Thoracic spondylosis. CT/CT chest wo con [id number] IMPRESSION: 1. No interval increase in size of RIGHT lower lobe 5 mm noncalcified pulmonar y nodule. No change since 02/18/2022. Consider yearly noncontrast chest CT follo w-up. 2. No new or additional or increasing size of pulmonary nodules or mass. 3. Prior CABG. 4. Cholelithiasis without acute cholecystitis. 5. Mild cardiomegaly.
== END 2022-11-18 06:27 | disposition home or self-care (01) ==
LOC: RAD 06:27
PROVIDERS: PCP Nurse Practitioner Family; Visit Provider Internal Medicine Pulmonary Disease
DX: R91.1 Solitary pulmonary nodule (principal)
CPT/HCPCS: 71250

== ENCOUNTER → 2022-12-23 10:25 | Outpatient (BNVA) | payer MEDICAID, SELFPAY | PROVIDERS: PCP Nurse Practitioner Family; Visit Provider Orthopaedic Surgery | DX: Z47.89 Encounter for other orthopedic aftercare (principal); I11.0 Hypertensive heart disease with heart failure; I50.9 Heart failure, unspecified; I25.10 Atherosclerotic heart disease of native coronary artery without angina pectoris; F17.210 Nicotine dependence, cigarettes, uncomplicated | CPT/HCPCS: 80048; 83880; 99024; 99214 ==

== ENCOUNTER → 2023-01-27 12:36 | Outpatient (BNVA) | payer MEDICAID, SELFPAY | PROVIDERS: PCP Nurse Practitioner Family; Visit Provider Nurse Practitioner Family | DX: I11.0 Hypertensive heart disease with heart failure (principal); I50.9 Heart failure, unspecified; I25.10 Atherosclerotic heart disease of native coronary artery without angina pectoris; F17.210 Nicotine dependence, cigarettes, uncomplicated; Z79.82 Long term (current) use of aspirin | CPT/HCPCS: 36415; 80048; 83880; 99214 ==

== ENCOUNTER 2023-03-17 16:20 | Emergency (ER) | payer MEDICAID, SELFPAY ==
[2023-03-17] VITALS (9 sets, daily range): BP systolic 106–162; BP diastolic 64–95; PULSE 69–80; RESP 16–21; TEMP 36.7; O2SAT 90–96; BMI 32.9
--- NOTE | 2023-03-17 16:25 | ECG_ITS ---
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 Measurements Intervals [place] Rate: 72 P: 35 SC: 170 QRS: 59 QRSD: 108 T: 64 QT: 372 QTc: 407 Interpretive Statements SINUS RHYTHM ST DEVIATION AND MODERATE T-WAVE ABNORMALITY, CONSIDER LATERAL ISCHEMIA [-0.1+ mV T-WAVE IN I/aVL/V5/V6] Compared to ECG 08/25/2022 02:08:22 Possible ischemia now present T-wave abnormality still present Electronically Signed On 03-19-2023 10:03:12 CDT by Singh Wilson M.D. [id number]
--- NOTE | 2023-03-17 16:25 | XRR_ITS ---
PROCEDURE INFORMATION: Exam: XR Chest Exam date and time: 03/17/2023 4:43 PM Age: 67 years old Clinical indication: Other: Chest pain with SOB; Prior surgery; Surgery date: 6+ months; Surgery type: History of open heart surgery of unknown date. ; Additional info: Cp TECHNIQUE: Imaging protocol: Radiologic exam of the chest. Views: 1 view. COMPARISON: CT chest con [id number] 11/18/2022 6:36 AM FINDINGS: Lungs: Unremarkable. No consolidation. Pleural spaces: Blunted right lateral costophrenic angle which may represent trace pleural fluid or thickening. Heart/Mediastinum: Cardiomegaly is unchanged. Bones/joints: Sternotomy changes are stable. Bones are stable. XR/XR chest 1V portable [id number] IMPRESSION: Possible trace right pleural effusion. No acute findings.
[2023-03-17 17:05] LABS: Basophils # 0.1 10^3/uL (0.0-0.1); Basophils % 0.8 %; Eosinophils # 0.2 10^3/uL (0.0-0.8); Eosinophils % 1.7 %; Hematocrit 48.2 % (42.0-52.0); Hemoglobin 15.5 g/dL (11.7-16.6); Lymphocytes # 2.9 10^3/uL (0.8-4.8); Lymphocytes % 28.3 %; Mean Corpuscular HGB Conc 32.2 g/dL (30.0-36.0); Mean Corpuscular Hemoglobin 31.6 pg (28.0-34.0); Mean Corpuscular Volume 98.2 fl (80-94); Mean Platelet Volume 10.9 fL (7.4-10.4); Monocytes % 10.2 %; Neutrophils # 5.98 10^3/uL (1.8-7.7); Neutrophils % 58.6 %; Nucleated Red Blood Cells % 0 %; Platelet Count 164 10^3/cmm (130-400); Red Blood Count 4.91 10^6/uL (4.1-5.3); Red Cell Distribution Width 14.1 % (12.1-15.1); White Blood Count 10.2 10^3/uL (4.0-10.0)
--- NOTE | 2023-03-17 17:08 | W.ED.CHESTPA ---
HPI - Chest Pain General: Chief Complaint: Chest Pain Stated Complaint: Chest pain, Swelling arms in legs, SOB Time Seen by Provider: 03/17/23 17:07 History of Present Illness: Mr. Gandara is a 67-year-old gentleman with history of hypertension, hyperlipidemia, CHF, history of CABG, history of coronary stents presenting to the emergency department for shortness of breath or chest discomfort. At baseline he does have some degree of chest discomfort which is typical however easily relieved by rest and nitro. Over the past few weeks has had increasing frequency and intensity chest pain with exertion. He notes shortness of breath and increased recovery time. Last night he had pain that woke him up from sleep and was not relieved by nitro. No other specific changes in health, exacerbating, or alleviating factors identified. 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 Onset (ago): week(s) Timing of current episode: constant Prior episodes: Yes Onset: during exertion Pain location: substernal Severity: moderate Quality: tightness and heaviness Relieving factors: nothing Exacerbating factors: exertion Associated symptoms: Reports dyspnea and palpitations; Deny leg edema, nausea or syncope Review of Systems General: Reports: 10 or more systems reviewed and unremarkable except in HPI and below Card: Reports: palpitations; Denies: syncope Resp: Reports: dyspnea GI: Denies: nausea PFSH ED PFSH: Medical History CHF (congestive heart failure), NYHA class II Essential (primary) hypertension GERD (gastroesophageal reflux disease) Hyperlipidemia, unspecified Lung nodule Spondylosis without myelopathy or radiculopathy, lumbosacral region Vitamin D deficiency Surgical History History of PTCA Hx of CABG Hx of vasectomy Family History Father Stroke Cancer Mother CAD (coronary artery disease) Diabetes Brother CAD (coronary artery disease) Hypertension Social History Smoking and tobacco status: current every day smoker cigarettes Packs smoked per day: 0.5 Years cigarettes smoked: 40 [ Other cigarette details: 1-2 cartons per day] Second hand smoke exposure: Yes Alcohol intake: never Substance/Drug Use: never Caregiver/support person: Yes Lives independently: Yes Household members: none Marital status: Single Current occupational status: disabled Current gender identity: Male Special suzie needs: No Agree to transfusion: Yes Physical Exam Const: COMMON NORMALS: alert GENERAL APPEARANCE: cooperative and well developed HENMT: COMMON NORMALS: normocephalic and atraumatic HEAD & SCALP: normocephalic and atraumatic Eye: COMMON NORMALS: conjunctivae normal CONJUNCTIVA: Yes conjunctivae normal SCLERA: sclerae normal Neck/C-Spine: COMMON NORMALS: supple GENERAL: Yes trachea midline Resp: COMMON NORMALS: clear to auscultation bilaterally EFFORT & INSPECTION: Yes able to speak in complete sentences AUSCULTATION: clear to auscultation bilaterally Cardio: COMMON NORMALS: regular rate and regular rhythm RATE: regular rate RHYTHM: regular rhythm GI: COMMON NORMALS: Soft to palpation PALPATION: Yes Soft to palpation and No Tenderness to palpation present (GI) Extremity: GENERAL: Yes normal exam except as noted and No edema Neuro: COMMON NORMALS: moves all extremities SENSORIUM/ORIENTATION: Yes alert and No Orientation impaired Psych: COMMON NORMALS: mental status grossly normal and Normal thought process present THOUGHT PROCESS: Normal thought process present Course Vital Signs: Vital signs: Vital Signs Temperature 98.0 F 03/17/23 16:38 Pulse Rate 76 03/17/23 21:58 Respiratory Rate 16 03/17/23 21:58 Blood Pressure 106/83 03/17/23 21:58 Pulse Oximetry 95 03/17/23 21:58 Oxygen Delivery Me thod Room Air 03/17/23 17:44 MDM - Chest Pain Medical Decision Making 67-year-old gentleman with complex history presenting to the emerged part for chest discomfort. No STEMI on EKG. Labs with minimal leukocytosis, normal hemoglobin and platelet count. Metabolic panel without significant derangement. Negative range 2-hour delta troponin. Chest x-ray with no lobar consolidation or pneumothorax. Initially had plan to admit the patient however I had overlooked recent cath report. Upon discussion and review of documentation and assessment of patient by hospitalist service patient is satisfactory for continued outpatient management. Ultimately he continues to smoke into the last for [place] fracture and while in the emergency department. Unlikely to have benefit from inpatient management. Medication changes per hospital service recommendation. The results of ED evaluation were discussed with the patient including prescriptions and/or symptomatic cares (if applicable) including appropriate and responsible use, followup plan, and return precautions. The patient verbalized understanding and felt safe for discharge. Medical Records I reviewed the patient's medical records. Lab Data I reviewed the patient's lab results. 03/17/23 16:53 03/17/23 16:53 Radiology Impressions Chest X-Ray 03/17/23 16:25 IMPRESSION: Possible trace right pleural effusion. No acute findings. Laboratory Results WBC 10.2 10^3/uL (4.0-10.0) H 03/17/23 16:53 RBC 4.91 10^6/uL (4.1-5.3) 03/17/23 16:53 Hgb 15.5 g/dL (11.7-16.6) 03/17/23 16:53 Hct 48.2 % (42.0-52.0) 03/17/23 16:53 MCV 98.2 fl (80-94) H 03/17/23 16:53 MCH 31.6 pg (28.0-34.0) 03/17/23 16:53 MCHC 32.2 g/dL (30.0-36.0) 03/17/23 16:53 RDW 14.1 % (12.1-15.1) 03/17/23 16:53 Plt Count 164 10^3/cmm (130-400) 03/17/23 16:53 MPV 10.9 fL (7.4-10.4) H 03/17/23 16:53 Neut % (Auto) 58.6 % 03/17/23 16:53 Lymph % (Auto) 28.3 % 03/17/23 16:53 [place] % (Auto) 10.2 % 03/17/23 16:53 Eos % (Auto) 1.7 % 03/17/23 16:53 Baso % (Auto) 0.8 % 03/17/23 16:53 Neut # (Auto) 5.98 10^3/uL (1.8-7.7) 03/17/23 16:53 Lymph # (Auto) 2.9 10^3/uL (0.8-4.8) 03/17/23 16:53 [place] # (Auto) 1.0 10^3/uL (0.2-0.9) H 03/17/23 16:53 Eos # (Auto) 0.2 10^3/uL (0.0-0.8) 03/17/23 16:53 Baso # (Auto) 0.1 10^3/uL (0.0-0.1) 03/17/23 16:53 Nucleated RBC % (auto) 0 % 03/17/23 16:53 Nucleated RBCs # 0.0 /100WBC 03/17/23 16:53 PT 13.10 SECONDS (12.1-14.9) 03/17/23 16:53 INR 0.96 (0.8-1.2) 03/17/23 16:53 Sodium 139 mmol/L (136-145) 03/17/23 16:53 Potassium 4.7 mmol/L (3.5-5.1) 03/17/23 16:53 Chloride 100 mmol/L (98-107) 03/17/23 16:53 Carbon Dioxide 29 mmol/L (22-29) 03/17/23 16:53 Anion Gap 14.7 (5-19) 03/17/23 16:53 BUN 20 mg/dL (8-23) 03/17/23 16:53 Creatinine 1.2 mg/dL (0.7-1.2) 03/17/23 16:53 GFR Calculation 60.8 mL/min (90-130) L 03/17/23 16:53 Glucose 106 mg/dL (65-115) 03/17/23 16:53 Calculated Osmolality 291 mOsm/kg (285-295) 03/17/23 16:53 Calcium 9.8 mg/dL (8.5-10.5) 03/17/23 16:53 Total Bilirubin 0.6 mg/dL (0.15-1.2) 03/17/23 16:53 AST 21 U/L (0-40) 03/17/23 16:53 ALT 17 U/L (0-41) 03/17/23 16:53 Alkaline Phosphatase 85 U/L (40-130) 03/17/23 16:53 Troponin T Baseline 21 ng/L (0-15) H 03/17/23 16:53 Troponin T 120 Minute 21.18 ng/L (0-15) H 03/17/23 18:54 Delta Troponin T 0.18 ABS# (0-10) 03/17/23 18:54 NT-Pro-B Natriuret Pep 152 pg/mL (0-125) H 03/17/23 16:53 Total Protein 6.9 g/dL (6.6-8.7) 03/17/23 16:53 Albumin 4.4 g/dL (3.5-5.2) 03/17/23 16:53 Globulin 2.5 g/dL (1.3-4.6) 03/17/23 16:53 Discharge Plan Discharge Patient Disposition: Home Clinical Impression: Chest pain Condition: Stable Prescriptions: New metoprolol tartrate 50 mg tablet 150 mg PO BID Qty: 120 0RF Continued trazodone 50 mg tablet 50 mg PO .HS PRN (Reason: insomnia) Qty: 30 0RF Discontinued metoprolol tartrate 100 mg tablet 100 mg PO BID Qty: 60 2RF No Action aspirin [Adult Low Dose Aspirin] 81 mg tablet,delayed release (DR/EC) 81 mg PO BID diclofenac sodium 75 mg tablet,delayed release (DR/EC) 75 mg PO BID PRN (Reason: pain) Qty: 60 0RF gabapentin 300 mg capsule 300 mg PO TID Qty: 90 2RF cyclobenzaprine 10 mg tablet 10 mg PO TID PRN (Reason: muscle spasm) Qty: 90 2RF Belsomra 10 mg tablet 10 mg PO .qhs Qty: 30 2RF atorvastatin 80 mg tablet 80 mg PO DAILY Qty: 30 2RF ranolazine 500 mg tablet extended release 12 hr 1,000 mg PO BID Qty: 60 6RF Anoro Ellipta 62.5-25 mcg/actuation blister with device 1 inh inhalation DAILY Qty: 60 3RF ipratropium-albuterol 0.5 mg-3 mg(2.5 mg base)/3 mL solution for nebulization 3 ml inhalation BID Qty: 180 3RF isosorbide mononitrate 60 mg tablet extended release 24 hr 60 mg PO BID Qty: 180 3RF ergocalciferol (vitamin D2) 1,250 mcg (50,000 unit) capsule 1,250 mcg PO .WEEKLY Qty: 4 5RF albuterol sulfate [ProAir HFA] 90 mcg/actuation HFA aerosol inhaler 2 puff INHALATION QID PRN (Reason: shortness of breath or wheezing) Qty: 18 5RF hydrocodone-acetaminophen 5-325 mg tablet 1 - 2 tab PO .Q4-6H PRN (Reason: pain) 7 Days Qty: 40 0RF furosemide 20 mg tablet 20 mg PO DAILY Qty: 30 0RF Rx Instructions: take daily in the AM for 5 days, may stop if breathing is better amlodipine 5 mg tablet 5 mg PO DAILY Qty: 90 1RF nitroglycerin 0.4 mg tablet, sublingual See Rx Instructions .ROUTE .COMPLEX Qty: 25 0RF Dose Instruction: DISSOLVE ONE TABLET UNDER THE TONGUE EVERY 5 MINUTES NEEDED FOR CHEST PAIN. DO NOT EXCEED A TOTAL OF 3 DOSES IN 15 MINUTES Rx Instructions: DISSOLVE ONE TABLET UNDER THE TONGUE EVERY 5 MINUTES NEEDED FOR CHEST PAIN. DO NOT EXCEED A TOTAL OF 3 DOSES IN 15 MINUTES fenofibrate 160 mg tablet 160 mg PO BEDTIME Qty: 90 0RF omeprazole 20 mg capsule,delayed release(DR/EC) See Rx Instructions .ROUTE .COMPLEX Qty: 60 0RF Dose Instruction: Take 1 capsule by mouth twice daily Rx Instructions: Take 1 capsule by mouth twice daily Discharge Orders: Discharge ED (Routine); Ordered 03/17/23 Ordered By: Deuce Bhardwaj Referrals: Daphne Flower FNP [Primary Care Provider] - Discharge Diet: Usual diet Discharge Activity: Resume usual activity Patient Instructions: Chest Pain (ED) Activity Restrictions/Additional Instructions: Thank you for visiting the emergency department. You were seen and evaluated for chest pain. The exact cause of your pain is unclear though likely related to underlying coronary disease. Please continue your medications. I recommend healthy lifestyle and quitting smoking. Please follow all previous cardiology given instructions and recommendations. I will message case management for follow-up with cardiology. I will refill your trazodone. You may increase as needed after 3 days on 50 mg to 100 mg. Please watch for signs of oversedation. Return for anything that you are concerned about and feel needs emergency department evaluation. Coding Level of Care Code ED Irrigation Manager for Jordan Griggs
[2023-03-17 17:17] LABS: INR 0.96 (0.8-1.2)
[2023-03-17 17:26] LABS: Troponin(5th) Baseline 21 ng/L (0-15)
[2023-03-17 17:36] LABS: Alanine Aminotransferase 17 U/L (0-41); Albumin Level 4.4 g/dL (3.5-5.2); Alkaline Phosphatase 85 U/L (40-130); Anion Gap 14.7 (5-19); Aspartate Amino Transferase 21 U/L (0-40); Blood Urea Nitrogen 20 mg/dL (8-23); Calcium 9.8 mg/dL (8.5-10.5); Carbon Dioxide 29 mmol/L (22-29); Chloride 100 mmol/L (98-107); Globulin 2.5 g/dL (1.3-4.6); Glomerular Filtration Rate 60.8 mL/min (90-130); Glucose 106 mg/dL (65-115); NT Pro B Type Natriuretic Pept 152 pg/mL (0-125); Osmolality Calculated 291 mOsm/kg (285-295); Potassium 4.7 mmol/L (3.5-5.1); Sodium 139 mmol/L (136-145); Total Bilirubin 0.6 mg/dL (0.15-1.2); Total Protein 6.9 g/dL (6.6-8.7)
[2023-03-17] MEDS: aspirin 81 mg Chew Tablet 324 MG PO (17:40)
[2023-03-17] MEDS: morphine 4 mg/mL SDV 1 mL IVP (17:42)
--- NOTE | 2023-03-17 17:49 | ECG_ITS ---
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 Measurements Intervals [place] Rate: 67 P: 6 [place]: 167 QRS: 94 QRSD: 110 T: -26 QT: 372 QTc: 395 Interpretive Statements SINUS RHYTHM BORDERLINE RIGHT AXIS DEVIATION [QRS AXIS > 90] ST DEVIATION AND MODERATE T-WAVE ABNORMALITY, CONSIDER LATERAL ISCHEMIA [-0.1+ mV T-WAVE IN I/aVL/V5/V6] Compared to ECG 03/17/2023 16:36:58 No significant changes Electronically Signed On 03-19-2023 12:32:57 CDT by Em Arauz M.D. [id number]
[2023-03-17 19:20] LABS: Troponin 5 2HR 21.18 ng/L (0-15)
[2023-03-17 19:24] LABS: Troponin 5 2HR Delta 0.18 ABS# (0-10)
--- NOTE | 2023-03-17 21:47 | PC.NURSE ---
Report called to SOFIE Nolen in [facility]. All questions answered at this time.
--- NOTE | 2023-03-17 22:10 | P.CONIM_ITS ---
Providers/Reason For Consult Consulting Physician/Specialty*: [facility] Reason for Consult*: chest pain, does patient meet criteria for admission/work up Requesting Physician: Dr. Shanks Attending Physician: not admitted Primary Care Provider: AMY Bueno History of Present Illness History of Present Illness Steve Gandara is a 67 year old male with longstanding coronary artery disease. His CABG was in 1993. Then he had a few stents placed in 2003. He is recently under the care of Dr. Arauz and the physician educational technology coordinator. Review of these notes and recent diagnostics show that patient continues to have a pos itive stress test test however his last catheterization in August 2022 shows 99% small circumflex and the bypass graft of the LAD is stenosed. No further coronary intervention could be done. Urology Damon recommended maximum medical therapy. He has in the last few months recently been started on Lasix 20 mg daily, which he admits sometimes he takes 2 doses when his leg swelling has increased. And he was also increased on ranolazine to 1000 mg twice daily which is the maximum dose. I reviewed the last note visit from January 2023 with patient and girlfriend. It was noted that he continues to smoke albeit 1 to 2 cigarettes a day. And it was also recommended that he have a blood pressure and heart rate log and sent back to the office which she did not complete. He admittedly is nonadherent with medical advice. Review of Systems Const: Denies: fever(s) or chills Eyes: Denies: change in vision ENMT: Denies: throat pain or nasal congestion Card: Reports: chest pain, edema and dyspnea on exertion; Denies: palpitations Resp: Denies: productive cough GI: Denies: abdominal pain, nausea, vomiting or change in stool character : Denies: difficulty urinating or dysuria Musc: Denies: back pain or extremity pain Skin/Breast: Denies: rash or lesions Neuro: Denies: headache(s) or dizziness Psych: Denies: anxiety or depression Erik/Lymph: Denies: easy bruising or easy bleeding Medications/Allergies Home Medications Medication Instructions Recorded Confirmed Last Taken Type aspirin 81 mg tablet,delayed 81 mg PO BID 05/29/21 01/27/23 09/26/22 History release (Adult Low Dose Aspirin) isosorbide mononitrate 60 mg 60 mg PO BID #180 tabs 04/23/22 01/27/23 09/28/22 Rx tablet,extended release 24 hr ergocalciferol (vitamin D2) 1,250 1,250 mcg PO .WEEKLY #4 caps 05/08/22 01/27/23 09/23/22 Rx mcg (50,000 unit) capsule umeclidinium 62.5 mcg-vilanterol 1 inh inhalation DAILY #60 ea 06/09/22 01/27/23 09/27/22 Rx 25 mcg/actuation powdr for inhalation (Anoro Ellipta) albuterol sulfate 90 mcg/actuation 2 puff inhalation QID PRN 06/18/22 01/27/23 09/27/22 Rx aerosol inhaler (ProAir HFA) shortness of breath or wheezing #18 grams ipratropium 0.5 mg-albuterol 3 mg 3 ml inhalation BID #180 mL 06/18/22 01/27/23 09/26/22 Rx (2.5 mg base)/3 mL nebulization soln atorvastatin 80 mg tablet 80 mg PO DAILY #30 tabs 11/19/22 01/27/23 Unknown Rx cyclobenzaprine 10 mg tablet 10 mg PO TID PRN muscle spasm #90 11/19/22 01/27/23 Unknown Rx tabs diclofenac sodium 75 mg 75 mg PO BID PRN pain #60 tabs 11/19/22 01/27/23 Unknown Rx tablet,delayed release gabapentin 300 mg capsule 300 mg PO TID #90 caps 11/19/22 01/27/23 Unknown Rx omeprazole 20 mg capsule,delayed 20 mg PO BID #60 caps 11/19/22 01/27/23 Unknown Rx release suvorexant 10 mg tablet (Belsomra) 10 mg PO .qhs #30 tabs 11/19/22 01/27/23 Unknown Rx hydrocodone 5 mg-acetaminophen 325 1 - 2 tab PO .Q4-6H PRN pain 7 12/18/22 01/27/23 Unknown Rx mg tablet days #40 tabs furosemide 20 mg tablet 20 mg PO DAILY #30 tabs 12/23/22 01/27/23 Unknown Rx amlodipine 5 mg tablet 5 mg PO DAILY #90 tabs 01/16/23 01/27/23 Unknown Rx ranolazine 500 mg tablet,extended 1,000 mg PO BID #60 tabs 01/27/23 01/27/23 Unknown Rx release,12 hr nitroglycerin 0.4 mg sublingual See Rx Instructions .Route 02/17/23 Unknown Rx tablet .COMPLEX #25 tabs fenofibrate 160 mg tablet 160 mg PO BEDTIME #90 tabs 02/19/23 Unknown Rx metoprolol tartrate 50 mg tablet 150 mg PO BID #120 tabs 03/17/23 Unknown Rx trazodone 50 mg tablet 50 mg PO .HS PRN insomnia #30 tabs 03/17/23 Unknown Rx Allergies Allergy/AdvReac Type Severity Reaction Status Date / Time codeine Allergy Mild itching Verified 03/17/23 16:38 PFSH Acute PFSH: Medical History CHF (congestive heart failure), NYHA class II Essential (primary) hypertension GERD (gastroesophageal reflux disease) Hyperlipidemia, unspecified Lung nodule Spondylosis without myelopathy or radiculopathy, lumbosacral region Vitamin D deficiency Surgical History History of PTCA Hx of CABG Hx of vasectomy Family History Father Stroke Cancer Mother CAD (coronary artery disease) Diabetes Brother CAD (coronary artery disease) Hypertension Social History Smoking and tobacco status: current every day smoker cigarettes Packs smoked per day: 0.5 Years cigarettes smoked: 40 [ Other cigarette details: 1-2 cartons per day] Second hand smoke exposure: Yes Alcohol intake: never Substance/Drug Use: never Caregiver/support person: Yes Lives independently: Yes Household members: none Marital status: Single Current occupational status: disabled Current gender identity: Male Special suzie needs: No Agree to transfusion: Yes Vitals/I&O/Wt Last Vital Signs Temp 98.0 F 03/17/23 16:38 Pulse 76 03/17/23 21:58 Resp 16 03/17/23 21:58 BP 106/83 03/17/23 21:58 Pulse Ox 95 03/17/23 21:58 O2 Del Method Room Air 03/17/23 17:44 Weight last 48 hrs Weight 81.647 kg Physical Exam Narrative: Patient is seen lying in bed with a frown on his face. His significant other is at his bedside. He appears older than his stated age of 67. His coloring is rather ashen. He has a protuberant abdomen consistent with abdominal obesity. Neurologic: Alert and oriented to person place time and situation. His exam is nonfocal HEENT. Head is normocephalic atraumatic. PERRLA/EOMI. nasal and pharyngeal mucosa is slightly erythematous consistent with smoking history. Neck is supple no JVD carotid bruits or lymphadenopathy Heart is regular rate and rhythm there is a 2/6 systolic murmur heard best in the left upper sternal border. Heart sounds are rather distant. Lungs: Diffusely diminished breath sounds with poor expiration. There are some scattered rhonchi in the bilateral lung bird. Abdomen: Protuberant normal bowel sounds no hepatosplenomegaly no rebound rigidity or guarding Extremities: No clubbing cyanosis or edema. Skin: No lesions or rashes noted Psych: Patient saddened and stressed by frequent chest pains. But otherwise his mood and affect is appropriate for his illness Data 03/17/23 16:53 03/17/23 16:53 EKG 1: My Interpretation: Normal sinus rhythm with T wave inversion in V5 and 6 Dietetic Technician Registered Interpretation: Same Prior ECG tracings: available for review (No change from prior) A&P Assessment and plan (1) Chest pain: As per cardiology notes chest pain is anticipated in a patient with this severity of coronary artery disease. I had a lengthy talk with patient and his girlfriend regarding the best ways to reduce the amount of chest pain. We di scussed lowering of heart rate and blood pressure to help with coronary artery perfusion. And we discussed options of medical management as was discussed previously. During his last office visit with cardiology he was maximized on his ranolazine to 1000 mg twice daily. After thorough review of his medication list with the patient and girlfriend it appeared that 2 options that may help this patient would be to increase amlodipine to 10 mg versus increase metoprolol tartrate. Since his heart rate was in the 70s and blood pressure was still elevated in the systolic 160 range I chose to increase metoprolol to 150 mg twice daily Since patient's had recent cath and medical management was recommended without change in EKG no further testing is recommended in this patient. I advised the patient to take blood pressure and heart rate readings every few days and report to Dr. Arauz's office early next week. I gave strong advice that he needs to follow medical recommendations as well as an acceptance of some chest pains. I am hopeful that cardiology may have an educator that could sit down and talk with patient and girlfriend about the best way to approach his chronic illness. (2) Exertional shortness of breath: As above (3) Coronary artery disease: As above Qualifiers: Coronary Disease-Associated Artery/Lesion type: [place] artery [place] vs. transplanted heart: [place] heart Associated angina: unspecified whether angina present Qualified Code(s): I25.10 - Atherosclerotic heart disease of [place] coronary artery without angina pectoris (4) COPD (chronic obstructive pulmonary disease): Patient was counseled to quit. We discussed various options to assist with tobacco cessation including nicotine patch and medication. This will be assist ed by the primary care physician Qualifiers: COPD type: unspecified COPD Qualified Code(s): J44.9 - Chronic obstructive pulmonary disease, unspecified (5) Tobacco abuse counseling: As above (6) Tobacco abuse: (7) Patient non adherence: This was discussed with patient and girlfriend. I advised that the patient follow the recommendations of the cardiology office. they have been instructed to take heart rate and blood pressure readings as stated above and bring to the office. Plan Patient does not need to be admitted to the hospital. No further stress test would need to be done at this time. He will always have a positive stress test. If he has exceptionally increased chest pain he is advised to come to the emergency room; however, it is unfortunate but stenting is most likely an option for this patient and his severe disease. Patient and his girlfriend are agreeable to discharge from the emergency room. I spoke with And he completed the discharge paperwork with the increased dosage of metoprolol and prescription for trazodone. Consult Attestations Medical Necessity Statement: Patient is to be discharged home Coding Level of Care Code 82534 Diagnoses Chest pain R07.9 Exertional shortness of breath R06.02 Coronary artery disease I25.10 Coronary Disease-Associated Artery/Lesion type: [place] artery [place] vs. transplanted heart: [place] heart Associated angina: unspecified whether angina present COPD (chronic obstructive pulmonary disease) J44.9 COPD type: unspecified COPD Tobacco abuse counseling Z71.6 Tobacco abuse Z72.0 Patient non adherence Z91.199
== END 2023-03-17 22:04 | disposition home or self-care (01) ==
PROVIDERS: Emergency Medicine; Emergency Provider Emergency Medicine; PCP Nurse Practitioner Family
DX: R07.9 Chest pain, unspecified (principal); F17.210 Nicotine dependence, cigarettes, uncomplicated; I11.0 Hypertensive heart disease with heart failure; I50.9 Heart failure, unspecified; E78.5 Hyperlipidemia, unspecified; Z95.1 Presence of aortocoronary bypass graft
CPT/HCPCS: 36415; 71045; 80053; 83880; 84484; 85025; 85610; 93005; 96374; 99285; J2270

== ENCOUNTER → 2023-04-10 09:01 | Outpatient (BNVA) | payer MEDICAID, SELFPAY | PROVIDERS: PCP Nurse Practitioner Family; Visit Provider Internal Medicine Cardiovascular Disease | DX: I11.0 Hypertensive heart disease with heart failure (principal); I50.20 Unspecified systolic (congestive) heart failure; F17.210 Nicotine dependence, cigarettes, uncomplicated; I25.10 Atherosclerotic heart disease of native coronary artery without angina pectoris; Z95.1 Presence of aortocoronary bypass graft; M15.9 Polyosteoarthritis, unspecified; J44.9 Chronic obstructive pulmonary disease, unspecified; E78.5 Hyperlipidemia, unspecified | CPT/HCPCS: 99214 ==

== ENCOUNTER → 2023-04-13 10:06 | Outpatient (BNVA) | payer MEDICAID, SELFPAY | PROVIDERS: PCP Nurse Practitioner Family; Visit Provider Internal Medicine Hematology & Oncology | DX: I25.10 Atherosclerotic heart disease of native coronary artery without angina pectoris (principal); I50.9 Heart failure, unspecified; R06.02 Shortness of breath; Z95.1 Presence of aortocoronary bypass graft; I10 Essential (primary) hypertension | CPT/HCPCS: 80048; 83735; 83880 ==

== ENCOUNTER → 2023-04-20 09:27 | Outpatient (BNVA) | payer MEDICAID, SELFPAY | PROVIDERS: PCP Nurse Practitioner Family; Visit Provider Nurse Practitioner Family | DX: R73.03 Prediabetes (principal); E78.5 Hyperlipidemia, unspecified; E55.9 Vitamin D deficiency, unspecified; L98.9 Disorder of the skin and subcutaneous tissue, unspecified; K21.9 Gastro-esophageal reflux disease without esophagitis; M51.37 Other intervertebral disc degeneration, lumbosacral region; G47.00 Insomnia, unspecified; N18.9 Chronic kidney disease, unspecified | CPT/HCPCS: 80053; 80061; 82043; 82306; 83036; 84443 ==

== ENCOUNTER → 2023-05-22 08:01 | Outpatient (BNVA) | payer MEDICAID, SELFPAY | PROVIDERS: PCP Nurse Practitioner Family; Visit Provider Nurse Practitioner Family | DX: I11.0 Hypertensive heart disease with heart failure (principal); I50.9 Heart failure, unspecified; F17.210 Nicotine dependence, cigarettes, uncomplicated | CPT/HCPCS: 99213 ==

== ENCOUNTER → 2023-06-01 14:11 | Outpatient (BNVA) | payer MEDICAID, SELFPAY | PROVIDERS: PCP Nurse Practitioner Family; Visit Provider Nurse Practitioner Family | DX: R42 Dizziness and giddiness (principal); M54.2 Cervicalgia | CPT/HCPCS: 80053; 85025 ==

== ENCOUNTER 2023-06-11 12:40 | Outpatient (CLI) | payer MEDICAID, SELFPAY ==
--- NOTE | 2023-06-11 12:48 | XR_ITS ---
WS: [id number] XR cervical spine 3V* [id number] REASON FOR EXAM: M54.2 - Cervicalgia FINDINGS: Relatively normal cervical spine curvatures. Normal odontoid. No significant vertebral body abnormality. Mild narrowing of the intervertebral disc spaces C4-C7. Associated anterior and uncinate osteophytosi s. Large osteophytes at C6-C7. No significant listhesis. Normal facet joints. IMPRESSION: Cervical degenerative spondylosis as above. Incidentally noted is extensive calcified plaque formation in the carotid arteries bilaterally.
== END 2023-06-11 12:41 | disposition home or self-care (01) ==
PROVIDERS: PCP Nurse Practitioner Family; Visit Provider Nurse Practitioner Family
DX: M47.892 Other spondylosis, cervical region (principal)
CPT/HCPCS: 72040

== ENCOUNTER → 2023-06-19 10:57 | Outpatient (BNVA) | payer MEDICAID, SELFPAY | PROVIDERS: PCP Nurse Practitioner Family; Visit Provider Nurse Practitioner Family | DX: I10 Essential (primary) hypertension (principal) | CPT/HCPCS: 80048 ==

== ENCOUNTER → 2023-06-24 14:12 | Outpatient (BNVA) | payer MEDICAID, SELFPAY | PROVIDERS: PCP Nurse Practitioner Family; Referring Provider Nurse Practitioner Family; Visit Provider Dermatology | DX: L91.8 Other hypertrophic disorders of the skin (principal); L81.4 Other melanin hyperpigmentation; L82.1 Other seborrheic keratosis; D18.01 Hemangioma of skin and subcutaneous tissue | CPT/HCPCS: 11200; 99204 ==